=== PATIENT | female | born 1955 | race Caucasian/White ===

== ENCOUNTER 2024-12-16 19:15 | Emergency (ER) | payer MEDICARE, BC, SELFPAY ==
--- OUTSIDE RECORDS SUMMARY | 2024-12-16 19:18 | XMS_ITS | Clinical Summary ---
Author Organization [employer] [facility] [employer] Address [place], [place] [address] Care Team Providers Care Clipper Operator Name Role Phone Eunice Rae Primary Care Provider Allergies Active Allergy Reactions Criticality Noted Date Comments Amlodipine Other - Describe In Comment Field 03/25/2019 Extreme fatigue and tiredness. Some dizziness. Codeine GI Upset 06/11/2008 Medications CLARITIN 10 MG TAB take 1 tablet (10 mg) by oral route once daily/prn 0 06/11/20 08 Active cholecalciferol (VITAMIN D-3) 2,000 unit capsule Take 3 capsules by mouth once daily. 0 05/07/20 15 Active aspirin (ECOTRIN) 81 mg enteric coated tablet Take 1 tablet by mouth once daily with a meal. 0 05/24/20 15 Active hydrOXYzine HCL (ATARAX) 25 mg tabletIndicatio ns:Anxiety Take 1 tablet by mouth every 6 hours if needed for Anxiety. 25 tablet 1 09/06/20 20 Active FLUoxetine (PROZAC) 20 mg capsuleIndicati ons:Anxiety TAKE 1 CAPSULE BY MOUTH EVERY DAY IN THE MORNING 90 Capsule 3 12/24/19 24 Active propranoloL (INDERAL) 20 mg tabletIndicatio ns:Essential tremor Take 1 Tablet (20 mg) by mouth once daily. 90 Tablet 3 12/24/19 24 Active umeclidinium-vi lanteroL (Anoro Ellipta) 62.5-25 mcg/actuation inhalerIndicati ons:Chronic obstructive pulmonary disease, unspecified COPD type (HC) Inhale 1 Puff by mouth once daily. Discard inhaler 6 weeks after opening or when the counter reads '0' (after all blisters have been used), whichever comes first. 180 Each 3 03/28/20 24 Active albuterol HFA (PRO-AIR; VENTOLIN; PROVENTIL) 90 mcg/actuation inhalerIndicati ons:Chronic obstructive pulmonary disease, unspecified COPD type (HC) Inhale 1-2 Puffs by mouth every 4 hours if needed for Shortness Of Breath or Wheezing. 3 Each 3 03/28/20 24 Active rosuvastatin (CRESTOR) 5 mg tabletIndicatio ns:Hypercholest erolemia TAKE 1 TABLET BY MOUTH AT BEDTIME 90 Tablet 2 12/16/19 25 Active hydroCHLOROthia zide 25 mg tabletIndicatio ns:HTN (hypertension) TAKE 1 TABLET BY MOUTH EVERY DAY 90 Tablet 12/16/19 25 Active losartan (COZAAR) 100 mg tabletIndicatio ns:HTN (hypertension) TAKE 1 TABLET BY MOUTH EVERY DAY 90 Tablet 12/16/19 25 Active hydroCHLOROthia zide (HCTZ) 25 mg tabletIndicatio ns:HTN (hypertension) Take 1 Tablet (25 mg) by mouth once daily. 90 Tablet 3 12/24/19 24 025 Discontinued losartan (COZAAR) 100 mg tabletIndicatio ns:HTN (hypertension) Take 1 Tablet (100 mg) by mouth once daily. 90 Tablet 3 12/24/19 24 025 Discontinued rosuvastatin (CRESTOR) 5 mg tabletIndicatio ns:Hypercholest erolemia Take 1 Tablet (5 mg) by mouth at bedtime. 90 Tablet 3 12/24/19 24 025 Discontinued Active Problems Problem Noted Date Diagnosed Date Tobacco use disorder 05/12/2009 Encounters Date Type Department Care Team Description 12/14/2024 Refill [facility] [place] [address] [address] Eunice Rae PA Refill Request (Rosuvastatin, Hydrochlorothiazide, Losartan) 09/26/2024 3:20 PM CDT Office Visit [facility] [address] [place] [address] Eunice Rae PA URI (Productive cough, sinus congestion, fatigue. / Cough so hard she thinks she got a hernia) 09/26/2024 Travel 09/24/2024 Telephone [facility] [address] [place] [address] uEnice Rae PA Cough from Last 3 Months Immunizations Name Administration Dates Next Due AMB Influenza, IIV3 (Age >=3 years)(Flu Clinic Only) 08/11/2013,09/11/2011,09/15/2008 AMB Influenza, IIV4 PF (=>6 mos Flulaval,Fluzone Fluarix)(Flu Clinic Only) 08/15/2016 Amb Influenza, Inact (High-d ose Quadrivalent) (Flu Clinic Only) 08/13/2020 COVID-19 vaccine (Moderna 100mcg/0.5mL) PF, MDV 03/03/2021,02/03/2021 Influenza A (H1N1), Inactivated 12/07/2009 Influenza Virus, Unspecified 08/05/2017 Influenza, High-dose Inactivated 08/01/2024,07/27 Influenza, High-dose Quadriv alent Inactivated 09/01/2022,08/12/2021 Influenza, IIV3 (Age 6-35 mos) 09/11/2011,2009 Influenza, IIV3 (Age >=3 years) 08/11/20 13,08/12/2012,08/08/2010,08/31,09/15/2008,09/18/2007,09/18/2005 Influenza, IIV4 08/26/2018, 7,08/15/2016,08/19,08/10/2014 Influenza, Inactivated AIIV4 (Age 65+ Years) Preserv Free 09/10/2023 Influenza, Inactivated IIV3 (Age 65+ Years) Preserv Free 08/05/2019 Pneumococcal Conj 20-valent (Prevnar 20) 08/21/2024 Pneumococcal conj 13-Valent (Prevnar 13) 03/25/2019 RSV, Recombinant ADJ Reconst ituted (Arexvy 120MCG/0.5mL) 08/01/2024 Tdap 09/11/2011 Zoster (Zostavax-ZVL, live) 08/12/2012 Family History Medical History Relation Name Comments Other Brother dad's half brot her has Parkinson's Cancer-breast Daughter diagnosed Oct 2016, bilat mastectomy and chemo Esophageal cancer Mother Other Mother tremor Cancer-breast Sister Relation Name Status Comments Brother Daughter Mother Sister Social History Tobacco Use Types Packs/Day Years Used Date Smoking Tobacco: Every Day Cigarettes 1 43.7 Started: 04/08/1981 Smokeless Tobacco: Never Tobacco Cessation:Ready to Q uit: Not Asked; Counseling Given: Yes Alcohol Use Standard Drinks/Week Comments No 0 (1 standard drink = 0.6 oz pur e alcohol) PHQ-2 Answer Date Recorded PHQ-2 TOTAL SCORE 0 04/08/2021 Social Connections Answer Date Recorded Do you often feel lonely or isolated from those around you? 0 12/24/2023 Financial Resource Strain Answer Date R ecorded Difficulty of Paying Living Expenses 3 12/24/2023 Difficulty of Paying Living Expenses Not on file 12/24/2023 Food Insecurity Answer Date Recorded Do you worry your food will run out before you are able to buy more? 1 12/24/2023 Transportation Needs Answer Date Record ed Does lack of transportation keep you from medica l appointments? 1 12/24/2023 Does lack of transportation keep you from work, meetings or getting things that you need? 1 12/24/2023 Housing Stability Answer Date Recorded What is your housing situation today? 1 12/24/2023 Utilities Answer Date Recorded Do you have trouble paying f or utilities (for example, heat, electricity, water, phone)? 1 12/24/2023 Comments No Sex and Gender Information Value Date Recorded Sex Assigned at Not on file Legal Sex Female 5:25 AM MYCOLOGIST Gender Identity Not on file Sexual Orientation Not on file Obstetrics History Last Filed Vital Signs Vital Sign Reading Time Taken Comments Blood Pressure 137/84 09/26/2024 3:28 PM CDT Pulse 56 09/26/2024 3:28 PM CDT Temperature 36.4 C (97.5 F) 09/26/2024 3:28 PM CDT Respiratory Rate 18 04/08/2021 1:13 PM CDT Oxygen Saturation 96% 09/26/2024 3:28 PM CDT Inhaled Oxygen Concentration - - Weight 69.9 kg (154 lb) 09/26/2024 3:28 PM CDT Height 168 cm (5' 6.14) 09/01/2022 10:16 AM CDT Body Mass Index 24.75 09/01/2022 10:16 AM CDT Plan of Treatment Upcoming Encounters Date Type Department Care Team (Late st Contact Info) Description 01/05/2025 10:30 AM MYCOLOGIST Office Visit [facility] [address] [place] [address] Eunice Rae PA [address] [place] [address] Health Maintenance Due Date Last Done Comments Hepatitis C screening for ag e 18-79 1971 Mammogram for age 45-[address] (for lung CA) ag e 50-80 2003 Zoster (shingles) series for age 50+ (2 of 3) 10/07/2012 08/12/2012 DEXA/DXA scan for age 65+ 2018 Medicare Wellness for age 65+ 2018 Tetanus booster 09/11/2021 09/11/2011, 09/11/2011 Depression screening for age 12+ 04/08/2022 04/08/2021, 10/08/2018, 10/08/2018, Additional history exists BMI (ht and wt on same day) for age 18+ 09/01/2023 09/01/2022, 04/11/2022, 09/26/2021, Additional history exists Fecal testing non-DNA (FIT,FOBT,iFOBT) for age 45-75 01/03/2024 01/03/2023, 07/24/2015 Lipids for age 45-75 01/27/2028 01/26/2023, 04/11/2022, 04/08/2021 Tdap Completed 09/11/2011 Influenza for age 65+ Completed 08/01/2024 , 09/10/2023, 09/01/2022, Additional history exists RSV vaccine for adults or Completed 08/01/2024 COVID-19 vaccine series Completed 08/21/20 24, 09/01/2022, 09/29/2021, Additional history exists Pneumococcal series for age 50+ Completed 4, 03/25/2019 Procedures Procedure Name Priority Date/Time Associated Diagnosis Comments LC LIPID PANEL AND CHOL/HDL RATIO Routine 01/26/2023 9:30 AM MYCOLOGIST Fatigue, unspecified type Pica in adults Acute diarrhea OCCULT BLOOD IFOBT STOOL Routine 01/03/2023 10:26 AM MYCOLOGIST Screening for colon cancer from Last 3 Months or Most Recently Relevant to Health Maintenance Results * (ABNORMAL) LC LIPID PANEL AND CHOL/HDL RATIO (01/26/2023 9:30 AM MYCOLOGIST) Cholesterol, Total 278(H) 100 - 199 mg/dL 01/30/2023 11:09 AM [facility] Triglycerides 174(H) 0 - 149 mg/dL 01/30/2023 11:09 AM [facility] HDL Cholesterol 47 >39 mg/dL 3 11:09 AM [facility] ([facility] VLDL Cholesterol Abdirashid 33 5 - 40 mg/dL 01/30/2023 11:09 AM [facility] LDL Chol Calc (NIH) 198(H) 0 - 99 mg/dL 01/30/2023 11:09 AM [facility] ([facility] Lipid Comment: Comment 01/30/2023 11:09 AM [facility] ([facility]) Comment: Possible Familial Hypercholesterolemia. FH should be suspected when fasting LDL cholesterol is above 189 mg/dL or non-HDL cholesterol is above 219 mg/dL. A family history of high cholesterol and heart disease in 1st degree relatives should be collected. J Clin Lipidol 2011;5:133-140 T. Chol/HDL Ratio 5.9(H) 0.0 - 4.4 ratio 01/30/2023 11:09 AM [facility] ([facility]) Comment: T. Chol/HDL Ratio Men Women 1/2 Avg.Risk 3.4 3.3 Avg.Risk 5.0 4.4 2X Avg.Risk 9.6 7.1 3X Avg.Risk 23.4 11.0 Blood BLOOD SPECIMEN / Unknown Venipuncture / Unknown 01/26/2023 9:30 AM MYCOLOGIST 01/26/2023 9:31 AM MYCOLOGIST Narrative [facility] ([facility]) - 01/30/2023 11:09 AM MYCOLOGIST Performed at: [address] [id number] [employer] Operator: Dylan Lopez MD, Phone: [phone] Eunice SANDHU SEND OUTS Final R esult [facility] ([facility]) [address] [place] [address], * OCCULT BLOOD IFOBT STOOL (01/03/2023 10:26 AM MYCOLOGIST) [facility] Signature STOOL BLOOD ,IFOBT Negative Negative 01/08/2023 10:58 AM MYCOLOGIST [facility] Stool STOOL SPECIMEN / Unknown Non-Blood / Unknown 01/03/2023 10:26 AM MYCOLOGIST 01/08/2023 10:26 AM MYCOLOGIST Eunice SANDHU [employer] Final R esult [facility] [address] [place] [address], from Last 3 Months or Most Recently Relevant to Health Maintenance Insurance [employer] [place] ONLY Care Teams Clipper Operator Relationship Specialty Start Date End Date Eunice Rae PA [address] [place], [place] [id number] PCP - General Family Practice 01/25/15
[2024-12-16 19:37] VITALS: BP 120/76; PULSE 63; RESP 16; TEMP 36.3; O2SAT 95; BMI 25.8
--- NOTE | 2024-12-16 20:19 | ED.FALL ---
HPI - Fall General Time Seen by Provider: 20:19 Date Seen: 12/16/24 Chief Complaint: Fall/Minor Trauma Stated Complaint: fell, hit head, L hand injury Time Seen by Provider: 12/16/24 20:19 Source: patient and RN notes reviewed Mode of arrival: ambulatory Limitations: no limitations History of Present Illness HPI Narrative: Patient is a very pleasant 69-year-old female with history of hypertension and tobacco use with early COPD who comes to the emergency room after falling and injuring her left hand and her left tenriism. Patient was walking into the ice arena and there is a slight decline. She was holding a blanket and she fell down. Her was with her. No reports of loss of consciousness, changes in mentation, vomiting. She had a glove on and when she removed the glove she had a large hematoma on the back of her hand and it was causing her discomfort especially with movement. She notes that she now has a headache on the left side of her head. No visual changes. Denies any neck pain and is able to move her neck without difficulty. Denies any prodromal symptoms prior to the fall. Thinks that maybe she had some gravel when she was walking. Related Data Allergies Allergy/AdvReac Type Severity Reaction Status Date / Time No Known Drug Allergies Allergy Verified 12/16/24 19:41 Review of Systems Status of ROS: Reports: 6 or more systems reviewed and unremarkable except as noted in History and below Const: Denies: fever Eyes: Denies: change in vision ENMT: Denies: neck pain Cardio: Denies: chest pain GI: Denies: vomiting Musculo: Denies: neck pain Neuro: Reports: headache Exam Narrative: Exam Narrative: Alert and oriented. Very pleasant woman in no acute distress. EOM is full. Pupils are small at 2.5 mm but are reactive. Head shows ecchymosis noted over the left tenriism extending onto the lateral aspect of the periorbital bones. No step-offs palpated. Neck is supple. No midline cervical tenderness. No guarding. Patient is able to rotate extend and flex neck without any discomfort. Heart with regular rate and rhythm and lungs are clear. Examination of her hand on the left shows a large palm-sized hematoma over the dorsal aspect distal 4th and 5th MCP. She is able to make a fist but this causes her discomfort. Otherwise moving all extremities. Const: Vital Signs, click to edit/add: Vital Signs - 24 hr 12/16/24 19:37 Temperature 97.4 F L Pulse Rate [Left P ulse Oximeter] 63 Respiratory Rate 16 Blood Pressure [Ri ght Upper Arm] 120/76 Pulse Oximetry 95 Oxygen Delivery Me thod Room Air Documenting provider has reviewed patient's vital signs: yes Course Course ED Course: Differential diagnosis includes but is not limited to soft tissue injury, fracture of the hand, intracranial bleed, skull fracture. Patient will undergo CT of the head. Have added facial CT given the location of the bruising which is extending on to the cheek bone. Also x-rays of the left hand or ordered. Patient is stable at this time with no worrisome vital signs. No evidence of loss of consciousness. Will not scan her neck is she has full range of motion at this time and no discomfort. Vital Signs Vital signs: Initial Vital Signs Temperature 97.4 F L 12/16/24 19:37 Temperature Source Temporal Artery Scan 12/16/24 19:37 Pulse Rate 63 12/16/24 19:37 Pulse Rhythm Regular 12/16/24 19:37 Respiratory Rate 16 12/16/24 19:37 Blood Pressure 120/76 12/16/24 19:37 Blood Pressure Mean 90 12/16/24 19:37 Blood Pressure Position Sitting 12/16/24 19:37 Pulse Oximetry 95 12/16/24 19:37 Oxygen Delivery Method Room Air 12/16/24 19:37 Vital Signs Temperature 97.4 F L 12/16/24 19:37 Pulse Rate 63 12/16/24 19:37 Respiratory Rate 16 12/16/24 19:37 Blood Pressure 120/76 12/16/24 19:37 Pulse Oximetry 95 12/16/24 19:37 Oxygen Delivery Method Room Air 12/16/24 19:37 Temperature 97.4 F L 12/16/24 19:37 Pulse Rate 63 12/16/24 19:37 Respiratory Rate 16 12/16/24 19:37 Blood Pressure 120/76 12/16/24 19:37 Pulse Oximetry 95 12/16/24 19:37 Oxygen Delivery Method Room Air 12/16/24 19:37 MDM - Fall MDM Narrative Medical decision making narrative: 1. Soft tissue injury left hand-ice to area of discomfort 2. Closed head injury-no evidence of loss of consciousness but patient complaining of headache. CT reassuring at this time. Recommend ibuprofen or Tylenol as needed for discomfort. Seek medical attention for vomiting nausea worsening symptoms and as needed. 3. Disposition-home at this time with her . Return as needed. Imaging Data CT scan - head: Attestation: I have reviewed the pertinent imaging results. My impression: I do not note any evidence of skull fracture or intracranial bleed. Radiologist's impression: Brain parenchyma, CSF spaces, and extra-axial spaces: The davenport-white differentiation is normal. No sign of mass, hemorrhage, or midline shift. No hydrocephalus. No extra-axial fluid collection. Atherosclerotic calcification of the bilateral carotid siphons. Bones: No fractures or bone lesions. Specifically the nasal bones, temporomandibular joints, maxilla and mandible appear intact. No skull fracture. Mild degenerative changes of the left TMJ. Orbits and globes: Bilateral lens replacement. Mild asymmetric left lateral periorbital soft tissue swelling. Globes are intact. No sign of intraorbital hemorrhage or emphysema. Sinuses and mastoid air cells: No acute or significant findings. Soft tissues: Unremarkable. IMPRESSION: 1. No evidence of an acute intracranial abnormality. 2. Mild asymmetric left lateral periorbital soft tissue swelling. No orbital or other maxillofacial fracture identified. Facial CT: Attestation: I have reviewed the pertinent imaging results. My impression: No obvious fractures. Radiologist's impression: Brain parenchyma, CSF spaces, and extra-axial spaces: The davenport-white differentiation is normal. No sign of mass, hemorrhage, or midline shift. No hydrocephalus. No extra-axial fluid collection. Atherosclerotic calcification of the bilateral carotid siphons. Bones: No fractures or bone lesions. Specifically the nasal bones, temporomandibular joints, maxilla and mandible appear intact. No skull fracture. Mild degenerative changes of the left TMJ. Orbits and globes: Bilateral lens replacement. Mild asymmetric left lateral periorbital soft tissue swelling. Globes are intact. No sign of intraorbital hemorrhage or emphysema. Sinuses and mastoid air cells: No acute or significant findings. Soft tissues: Unremarkable. IMPRESSION: 1. No evidence of an acute intracranial abnormality. 2. Mild asymmetric left lateral periorbital soft tissue swelling. No orbital or other maxillofacial fracture identified. Left hand x-ray: Attestation: I have reviewed the pertinent imaging results. My impression: No obvious fracture Radiologist's impression: Bones: Alignment is normal. No fractures or bone lesions. Joint spaces: Mild degenerative changes the radiocarpal and 1st carpometacarpal joints. Soft tissues: Mild dorsal hand soft tissue swelling. Impression: Mild dorsal hand soft tissue swelling. No acute bony abnormality. Discharge Plan Discharge Clinical Impression: Soft tissue injury of left hand, Closed head injury Patient Disposition: Home, Self-Care Condition: Unchanged Additional Instructions: Recommend Tylenol or ibuprofen as needed for discomfort. Rest this week. Seek medical attention for vomiting, visual changes, worsening symptoms. Ice to areas of discomfort as needed. Follow Up/Referrals: Eunice Rae PA-C [Primary Care Provider] - Stand Alone Forms: [employer] Info Instructions
--- NOTE | 2024-12-16 20:28 | CRLHL7_ITS ---
For Patients: As a result of the Cures Act, medical imaging exams and procedure reports are released immediately into your electronic medical record. You may view this report before your referring provider. If you have questions, please contact your health care provider. Indication: Left dorsal hematoma. Technique: Left hand 2 views. Comparison: None. Findings: Bones: Alignment is normal. No fractures or bone lesions. Joint spaces: Mild degenerative changes the radiocarpal and 1st carpometacarpal joints. Soft tissues: Mild dorsal hand soft tissue swelling. Impression: Mild dorsal hand soft tissue swelling. No acute bony abnormality. Dictated by Ten Ewing MD @ 12/16/2024 9:22:40 PM (Electronically Signed)
--- NOTE | 2024-12-16 20:28 | CRLHL7_ITS ---
For Patients: As a result of the Century Cures Act, medical imaging exams and procedure reports are released immediately into your electronic medical record. You may view this report before your referring provider. If you have questions, please contact your health care provider. INDICATION: Left periorbital trauma. TECHNIQUE: CT head and maxillofacial without contrast. COMPARISON: None. FINDINGS: Brain parenchyma, CSF spaces, and extra-axial spaces: The davenport-white differentiation is normal. No sign of mass, hemorrhage, or midline shift. No hydrocephalus. No extra-axial fluid collection. Atherosclerotic calcification of the bilateral carotid siphons. Bones: No fractures or bone lesions. Specifically the nasal bones, temporomandibular joints, maxilla and mandible appear intact. No skull fracture. Mild degenerative changes of the left TMJ. Orbits and globes: Bilateral lens replacement. Mild asymmetric left lateral periorbital soft tissue swelling. Globes are intact. No sign of intraorbital hemorrhage or emphysema. Sinuses and mastoid air cells: No acute or significant findings. Soft tissues: Unremarkable. IMPRESSION: 1. No evidence of an acute intracranial abnormality. 2. Mild asymmetric left lateral periorbital soft tissue swelling. No orbital or other maxillofacial fracture identified. Please note that all CT scans at this facility use dose modulation, iterative reconstruction, and/or weight-based dosing when appropriate to reduce radiation dose to as low as reasonably achievable. Dictated by Ten Ewing MD @ 12/16/2024 9:19:38 PM (Electronically Signed)
--- OUTSIDE RECORDS SUMMARY | 2024-12-16 20:54 | XMS_ITS | Clinical Summary ---
Author Organization [email or web address] [facility] Address [place], [place] [address] Care Team Providers Care Rn Cardiovascular Icu Name Role Phone Eunice Rae Primary Care [...] Type Department Care Team Description 12/14/2024 Refill [facility] [place] [address] [address] Eunice Rae PA Refill Request (Rosuvastatin, Hydrochlorothiazide, Losartan) 09/26/2024 3:20 PM CDT Office Visit [facility] [address] [place] [address] Eunice Rae PA URI (Productive cough, sinus congestion, fatigue. / Cough so hard she thinks she got a hernia) 09/26/2024 Travel 09/24/2024 Telephone [facility] [address] [place] [address] Eunice Rae PA Cough from Last 3 Months [...] on file Legal Sex Female 5:25 AM SEWER AND INSPECTOR Gender Identity Not on file Sexual Orientation [...] st Contact Info) Description 01/05/2025 10:30 AM SEWER AND INSPECTOR Office Visit [facility] [address] [place] [address] Eunice Rae PA [address] [place] [address] Health Maintenance Due Date Last Done Comments [...] AND CHOL/HDL RATIO Routine 01/26/2023 9:30 AM SEWER AND INSPECTOR Fatigue, unspecified type Pica in adults Acute diarrhea OCCULT BLOOD IFOBT STOOL Routine 01/03/2023 10:26 AM SEWER AND INSPECTOR Screening for colon cancer from Last 3 Months or Most Recently Relevant to Health Maintenance Results * (ABNORMAL) LC LIPID PANEL AND CHOL/HDL RATIO (01/26/2023 9:30 AM SEWER AND INSPECTOR) Cholesterol, Total 278(H) 100 - 199 mg/dL 01/30/2023 11:09 AM [facility] Triglycerides 174(H) 0 - 149 mg/dL 01/30/2023 11:09 AM [facility] HDL Cholesterol 47 >39 mg/dL 3 11:09 AM [facility] VLDL Cholesterol Abdirashid 33 5 - 40 mg/dL 01/30/2023 11:09 AM [facility] LDL Chol Calc (NIH) 198(H) 0 - 99 mg/dL 01/30/2023 11:09 AM [facility] Lipid Comment: Comment 01/30/2023 11:09 AM [facility] Comment: Possible Familial Hypercholesterolemia. FH should be suspected when fasting LDL cholesterol is above 189 mg/dL or non-HDL cholesterol is above 219 mg/dL. A family history of high cholesterol and heart disease in 1st degree relatives should be collected. J Clin Lipidol 2011;5:133-140 T. Chol/HDL Ratio 5.9(H) 0.0 - 4.4 ratio 01/30/2023 11:09 AM [facility] Comment: T. Chol/HDL Ratio Men Women 1/2 Avg.Risk 3.4 3.3 Avg.Risk 5.0 4.4 2X Avg.Risk 9.6 7.1 3X Avg.Risk 23.4 11.0 Blood BLOOD SPECIMEN / Unknown Venipuncture / Unknown 01/26/2023 9:30 AM SEWER AND INSPECTOR 01/26/2023 9:31 AM SEWER AND INSPECTOR Narrative [facility] - 01/30/2023 11:09 AM SEWER AND INSPECTOR Performed at: [address] [id number] Client Professional: Dylan Lopez MD, Phone: [phone] Eunice SANDHU SEND OUTS Final R esult [facility] ([facility]) [address] [place] [address], * OCCULT BLOOD IFOBT STOOL (01/03/2023 10:26 AM SEWER AND INSPECTOR) [facility] Signature STOOL BLOOD ,IFOBT Negative Negative 01/08/2023 10:58 AM SEWER AND INSPECTOR [facility] Stool STOOL SPECIMEN / Unknown Non-Blood / Unknown 01/03/2023 10:26 AM SEWER AND INSPECTOR 01/08/2023 10:26 AM SEWER AND INSPECTOR Eunice SANDHU LABORATORY Final R esult [facility] [address] [place] [address], from Last 3 Months or Most Recently Relevant to Health Maintenance Insurance [employer] [place] [employer] ONLY Care Teams Rn Cardiovascular Icu Relationship Specialty Start Date End Date Eunice Rae PA [address] [place], [place] [id number] PCP - General Family Practice 01/25/15
== END 2024-12-16 21:47 | disposition home or self-care (01) ==
PROVIDERS: Emergency Provider Family Medicine; PCP Physician Assistant Medical
DX: S09.90XA Unspecified injury of head, initial encounter (principal); S60.222A Contusion of left hand, initial encounter; W18.30XA Fall on same level, unspecified, initial encounter
CPT/HCPCS: 70450; 70486; 73120; 99284

== ENCOUNTER 2025-05-25 16:41 | Emergency (ER) | payer MEDICARE, BC, SELFPAY ==
[2025-05-25 16:54] VITALS: BP 145/83; PULSE 67; RESP 18; TEMP 36.3; O2SAT 97; BMI 22.6
--- OUTSIDE RECORDS SUMMARY | 2025-05-25 16:55 | XMS_ITS | Clinical Summary ---
Author Organization [facility] Address [address] [place] [address] Care Team Providers Care Manager Trust Name Role Phone Eunice Rae Primary Care Provider Allergies Active Allergy Reactions Criticality Noted Date Comments Amlodipine Other - Describe In Comment Field 03/25/2019 Extreme fatigue and tiredness. Some dizziness. Codeine GI Upset 06/11/2008 Medications CLARITIN 10 MG TAB take 1 tablet (10 mg) by oral route once daily/prn 0 8 Active cholecalciferol (VITAMIN D-3) 2,000 unit capsule Take 3 capsules by mouth once daily. 0 5 Active aspirin (ECOTRIN) 81 mg enteric coated tablet Take 1 tablet by mouth once daily with a meal. 0 5 Active hydrOXYzine HCL (ATARAX) 25 mg tabletIndicatio ns:Anxiety Take 1 tablet by mouth every 6 hours if needed for Anxiety. 25 tablet 1 0 Active rosuvastatin (CRESTOR) 5 mg tabletIndicatio ns:Hypercholest erolemia TAKE 1 TABLET BY MOUTH AT BEDTIME 90 Tablet 2 5 Active hydroCHLOROthia zide 25 mg tabletIndicatio ns:HTN (hypertension) Take 1 Tablet (25 mg) by mouth once daily. 90 Tablet 3 5 Active FLUoxetine 20 mg capsuleIndicati ons:Anxiety TAKE 1 CAPSULE BY MOUTH EVERY DAY IN THE MORNING 90 Capsule 2 5 Active albuterol HFA 90 mcg/actuation inhalerIndicati ons:Chronic obstructive pulmonary disease, unspecified COPD type (HC) INHALE 1 TO 2 PUFFS BY MOUTH EVERY 4 HOURS NEEDED FOR SHORTNESS OF BREATH OR FOR WHEEZE 25.5 Each 3 5 Active losartan 50 mg tabletIndicatio ns:HTN (hypertension) Take 1.5 Tablets (75 mg) by mouth once daily. 135 Tablet 5 Active umeclidinium-vi lanteroL (Anoro Ellipta) 62.5-25 mcg/actuation inhalerIndicati ons:Chronic obstructive pulmonary disease, unspecified COPD type (HC) Inhale 1 Puff by mouth once daily. Discard inhaler 6 weeks after opening or when the counter reads '0' (after all blisters have been used), whichever comes first. 180 Each 5 Active propranoloL 10 mg tabletIndicatio ns:Benign essential tremor,HTN (hypertension) Take 1 Tablet (10 mg) by mouth once daily. 90 Tablet 1 5 Active propranoloL 20 mg tabletIndicatio ns:Essential tremor Take 1 Tablet (20 mg) by mouth once daily. 90 Tablet 2 5 05/18/20 25 Discontinu ed(*Medica tion adjustment ) Active Problems Problem Noted Date Diagnosed Date Tobacco use disorder 05/12/2009 Encounters Date Type Department Care Team Description 05/25/2025 Nurse Triage [facility] [address] [place] [address] Eunice Rae PA 05/25/2025 Telephone [facility] [address] [place] [address] Eunice Rae PA Concerns 05/20/2025 9:00 AM CDT Ancillary Procedure [facility] [address] [facility] [address] [place] [address] 05/19/2025 Travel 05/18/2025 10:30 AM CDT Office Visit [facility] [address] [place] [address] Eunice Rae PA Abdominal Pain (Upper central pain and on each side, very random. Feels bloated all the time, so doesn't eat much); Constipation; Nausea; Blood Pressure (BP keeps dropping in the afternoon, gets really dizzy); Breathing Problem (When active, has been for awhile now, inhaler does help) 05/17/2025 Travel 04/03/2025 Refill [facility] [address] [place] [address] Eunice Rae PA Refill Request (Umeclidinium-Vilan tero 62.5-25) 04/01/2025 Refill [facility] [address] [place] [address] Eunice Rae PA Refill Request (Anoro Ellipta) 03/31/2025 10:30 AM CDT Orders Only [facility] [address] [place] [address] Lab, [facility] 03/30/2025 2:40 PM CDT Office Visit [facility] [address] [place] [address] Eunice Rae PA Back Pain (Lower back pain - pain when she gets up from a sitting position.); Urinary Problem (Very dark color in the mornings, abnormal odor) 03/30/2025 Travel from Last 3 Months Immunizations Immunization Administration Dates Next Due AMB Influenza, IIV3 [...] Date Smoking Tobacco: Every Day Cigarettes 1 44.1 Started: 04/08/1981 Smokeless Tobacco: Never Tobacco Cessation:Ready to Q uit: Not Asked; Counseling Given: Yes Alcohol Use Standard Drinks/Week Comments No 0 (1 standard drink = 0.6 oz pur e alcohol) PHQ-2 Answer Date Recorded PHQ-2 TOTAL SCORE 1 01/05/2025 Social Connections Answer Date Recorded Do you often feel lonely or isolated from those around you? 0 01/05/2025 Financial Resource Strain Answer Date R ecorded Difficulty of Paying Living Expenses 3 01/05/2025 Difficulty of Paying Living Expenses Not on file 01/05/2025 Food Insecurity Answer Date Recorded Do you worry your food will run out before you are able to buy more? 1 01/05/2025 Transportation Needs Answer Date Record ed Does lack of transportation keep you from medica l appointments? 1 01/05/2025 Does lack of transportation keep you from work, meetings or getting things that you need? 1 01/05/2025 Housing Stability Answer Date Recorded What is your housing situation today? 1 01/05/2025 Utilities Answer Date Recorded Do you have trouble paying f or utilities (for example, heat, electricity, water, phone)? 1 01/05/2025 Comments No Sex and Gender Information Value Date Recorded Sex Assigned at Not on file Legal Sex Female 5:25 AM MANAGER CLEANING Gender Identity Not on file Sexual Orientation Not on file Obstetrics History Last Filed Vital Signs Vital Sign Reading Time Taken Comments Blood Pressure 131/74 05/18/2025 10:41 AM CDT Pulse 52 05/18/2025 10:41 AM CDT Temperature 36.4 C (97.5 F) 09/26/2024 3:28 PM CDT Respiratory Rate 18 04/08/2021 1:13 PM CDT Oxygen Saturation 98% 05/18/2025 10:41 AM CDT Inhaled Oxygen Concentration - - Weight 63.5 kg (140 lb) 05/18/2025 10:41 AM CDT Height 168 cm (5' 6.14) 01/05/2025 10:43 AM MANAGER CLEANING Body Mass Index 22.5 01/05/2025 10:43 AM MANAGER CLEANING Plan of Treatment Upcoming Encounters Date Type Department Care Team (Late st Contact Info) Description 05/26/2025 10:10 AM CDT Office Visit [facility] [address] [place] [address] Eunice Rae PA [address] [place] [address] Health Maintenance Due Date Last Done Comments Hepatitis C screening for age 18-79 1971 Mammogram for age 45-[address] (for lung CA) age 50-80 2003 Zoster (shingles) series for age 50+ (2 of 3) 10/07/2012 08/12/2012 DEXA/DXA scan for age 65+ 2018 Tetanus booster 09/11/2021 09/11/2011, 09/11/2011 Fecal testing non-DNA (FIT,FOBT,iFOBT) for age 45-75 01/03/2024 01/03/2023, 07/24/2015 COVID-19 vaccine series ( season) 2025 08/21/2024, 09/01/2022, 09/29/2021, Additional history exists BMI (ht and wt on same day) for age 18+ 01/05/2026 01/05/2025, 09/01/2022, 04/11/2022, Additional history exists Depression screening for age 12+ 01/05/2026 01/05/2025, 04/08/2021, 10/08/2018, Additional history exists Medicare Wellness for age 65+ 01/06/2026 01/05/2025 Lipids for age 45-75 01/05/2030 01/05/2025, 01/26/2023, 04/11/2022, Additional history exists Tdap Completed 09/11/2011 Influenza Vaccine Completed 08/01/2024, , 08/13/2020, Additional history exists RSV vaccine for adults or Completed 08/01/2024 Pneumococcal series for age 50+ Completed 08/21/2024, 03/25/2019 Hepatitis B series for 19+ Aged Out N o longer eligible based on patient's age to complete this topic Procedures Procedure Name Priority Date/Time Associated Diagnosis Comments US ABDOMEN LIMITED Routine 05/20/2025 9: 39 AM CDT Abdominal pain, RUQ (right upper quadrant) COMP METABOLIC PANEL Routine 05/18/2025 11:20 AM CDT Abdominal pain, RUQ (right upper quadrant) CBC WITH AUTO DIFFERENTIAL Routine 05/18/2025 11:20 AM CDT Abdominal pain, RUQ (right upper quadrant) URINALYSIS MACROSCOPIC - [facility] ONLY POC DIP ([facility]) Routine 03/31/2025 11:38 AM CDT Dark brown urine URINE CULTURE Routine 03/31/2025 11:05 AM CDT Dark brown urine URINALYSIS MICROSCOPIC Routine 03/31/2025 11:05 AM CDT Dark brown urine LIPID PANEL W REFLEX MEASURED LDL Routine 01/05/2025 11:43 AM MANAGER CLEANING Screening cholesterol level OCCULT BLOOD IFOBT STOOL Routine 01/03/2023 10:26 AM MANAGER CLEANING Screening for colon cancer from Last 3 Months or Most Recently Relevant to Health Maintenance Results * US ABDOMEN LIMITED (05/20/2025 9:39 AM CDT) Anatomical Region Laterality Modality Abdomen, LIVER, KIDNEYS, PANCREAS, GALLBLADDER, SPLEEN Ultrasound 05/21/2025 7:47 AM CDT Impressions 05/21/2025 7:47 AM CDT Multiple gallbladder polyps measuring up to 4 millimeters. No biliary obstruction. Incidental intrahepatic cysts. Central abdominal varicosities which could suggest portal hypertension or other pathology. CT recommended for further evaluation. Dictated by Cristóbal Larry MD @ 05/21/2025 7:47:49 AM (Electronically Signed) Narrative 05/21/2025 7:47 AM CDT For Patients: As a result of the Century Cures Act, medical imaging exams and procedure reports are released immediately into your electronic medical record. You may view this report before your referring provider. If you have questions, please contact your health care provider. INDICATION: Abdominal pain, RUQ (right upper quadrant) COMPARISON: none TECHNIQUE: Real time davenport scale imaging and color Doppler analysis was performed of the right upper quadrant. FINDINGS: Right hepatic lobe simple cysts are present measuring 2.5 x 1.8 x 2.8 cm and 2.4 x 1.2 x 1.8 cm. No suspicious intrahepatic mass. Varicosities noted. There is a normal appearance of the hepatic IVC and proximal abdominal aorta. There is no evidence of ascites. The gallbladder is of normal size and there are nonmobile echogenic foci associated with the gallbladder wall measuring up to 4 millimeters. The gallbladder wall measures 1 mm in thickness. The common bile duct is of normal size and measures 5 mm in diameter at the level of the osman hepatis. The pancreas appears normal. There is no evidence of a stone or hydronephrosis within the right kidney. The right kidney measures 10.0 cm in length. Procedure Note Cristóbal Larry MD - 05/21/2025 For Patients: As a result of the Century Cures Act, medical imagingexams and procedure reports are released immediately into your electronicmedical record. You may view this report before your referring provider.If you have questions, please contact your health care provider. INDICATION: Abdominal pain, RUQ (right upper quadrant) COMPARISON: none TECHNIQUE: Real time davenport scale imaging and color Doppler analysis was performed ofthe right upper quadrant. FINDINGS: Right hepatic lobe simple cysts are present measuring 2.5 x 1.8 x 2.8 cmand 2.4 x 1.2 x 1.8 cm. No suspicious intrahepatic mass. Varicositiesnoted. There is a normal appearance of the hepatic IVC and proximalabdominal aorta. There is no evidence of ascites. The gallbladder is ofnormal size and there are nonmobile echogenic foci associated with thegallbladder wall measuring up to 4 millimeters. The gallbladder wallmeasures 1 mm in thickness. The common bile duct is of normal size andmeasures 5 mm in diameter at the level of the osman hepatis. The pancreasappears normal. There is no evidence of a stone or hydronephrosis withinthe right kidney. The right kidney measures 10.0 cm in length. IMPRESSION: Multiple gallbladder polyps measuring up to 4 millimeters. No biliaryobstruction. Incidental intrahepatic cysts. Central abdominal varicosities which could suggest portal hypertension orother pathology. CT recommended for further evaluation. Dictated by Cristóbal Larry MD @ 05/21/2025 7:47:49 AM (Electronically Signed) us Eunice SANDHU Final R esult * (ABNORMAL) CBC AND DIFFERENTIAL (05/18/2025 11:20 AM CDT) WHITE BLOOD CELL COUNT 9.8 3.8 - 10.8 Thousand/u L [facility] RED BLOOD CELL COUNT 4.90 3.80 - 5.10 Million/uL [facility] HEMOGLOBIN 14.7 11.7 - 15.5 g/dL [facility] HEMATOCRIT 44.1 35.0 - 45.0 % [facility] MCV 90.0 80.0 - 100.0 fL [facility] MCH 30.0 27.0 - 33.0 pg [facility] MCHC 33.3 32.0 - 36.0 g/dL [facility] Comment: For adults, a slight decrease in the calculated MCHC value (in the range of 30 to 32 g/dL) is most likely not clinically significant; however, it should be interpreted with caution in correlation with other red cell parameters and the patient's clinical condition. RDW 13.0 11.0 - 15.0 % [facility] PLATELET COUNT 284 140 - 400 Thousand/u L [facility] MPV 10.8 7.5 - 12.5 fL [facility] ABSOLUTE NEUTROPHILS 6,889 1,500 - 7,800 cells/uL [facility] ABSOLUTE LYMPHOCYTES 1,490 850 - 3,900 cells/uL [facility] ABSOLUTE MONOCYTES 1,107(H) 200 - 950 cells/uL [facility] ABSOLUTE EOSINOPHILS 196 15 - 500 cells/uL [facility] ABSOLUTE BASOPHILS 118 0 - 200 cells/uL [facility] NEUTROPHILS 70.3 % [facility] LYMPHOCYTES 15.2 % [facility] MONOCYTES 11.3 % [facility] EOSINOPHILS 2.0 % [facility] BASOPHILS 1.2 % [facility] Blood BLOOD SPECIMEN / Unknown 05/18/2025 11:20 AM CDT 05/18/2025 11:21 AM CDT us Eunice SANDHU HEMATOLOGY Final R esult [facility] [address] [place] [address], [facility] [address] [place] [address] * COMP METABOLIC PANEL (05/18/2025 11:20 AM CDT) Pathologist [facility] GLUCOSE 97 65 - 99 mg/dL [facility] Comment: Fasting reference interval UREA NITROGEN (BUN) 21 7 - 25 mg/dL [facility] CREATININE 0.87 0.60 - 1.00 mg/dL [facility] EGFR 71 > OR = 60 mL/min/1. 73m2 [facility] BUN/CREATININE RATIO SEE NOTE: 6 - 22 (calc) [facility] Comment: Not Reported: BUN and Creatinine are within reference range. SODIUM 135 135 - 146 mmol/L [facility] POTASSIUM 3.6 3.5 - 5.3 mmol/L [facility] CHLORIDE 99 98 - 110 mmol/L [facility] CARBON DIOXIDE 26 20 - 32 mmol/L [facility] CALCIUM 9.4 8.6 - 10.4 mg/dL [facility] PROTEIN, TOTAL 6.8 6.1 - 8.1 g/dL [facility] ALBUMIN 4.1 3.6 - 5.1 g/dL [facility] GLOBULIN 2.7 1.9 - 3.7 g/dL (calc) [facility] ALBUMIN/GLOBULIN RATIO 1.5 1.0 - 2.5 (calc) [facility] BILIRUBIN, TOTAL 0.6 0.2 - 1.2 mg/dL [facility] ALKALINE PHOSPHATASE 63 37 - 153 U/L [facility] AST 19 10 - 35 U/L [facility] ALT 17 6 - 29 U/L [facility] Blood BLOOD SPECIMEN / Unknown 05/18/2025 11:20 AM CDT 05/18/2025 11:21 AM CDT us Eunice SANDHU CHEMISTRY Final R esult [facility] [id number] [place] [address], [place] [phone] [facility] [address] [place] [address] * (ABNORMAL) POCT Urinalysis Dipstick Only [[id number]] (03/31/2025 11:38 AM CDT) Pathologist [facility] PH 5.5 5.0 - 8.0 [facility] SPECIFIC GRAVITY 1.020 1.001 - 1.035 [facility] GLUCOSE NEGATIVE NEGATIVE [facility] BILIRUBIN NEGATIVE NEGATIVE [facility] KETONES NEGATIVE NEGATIVE [facility] OCCULT BLOOD NEGATIVE NEGATIVE [facility] PROTEIN NEGATIVE NEGATIVE [facility] NITRITE NEGATIVE NEGATIVE [facility] LEUKOCYTE ESTERASE TRACE(A) NEGATIVE [facility] Urine URINE SPECIMEN / Unknown 03/31/2025 11:38 AM CDT 03/31/2025 11:38 AM CDT Eunice SANDHU URINE Final R esult [facility] [address] [place] [address], [facility] [address] [place] [address] * (ABNORMAL) URINALYSIS MICROSCOPIC [25663.1] - routine (03/31/2025 11:05 AM CDT) RBC 0-2 0-2, None Seen /HPF 03/31/2025 3:26 PM CDT [facility] WBC 3-5 0-2, 3-5, None Seen /HPF 03/31/2025 3:26 PM CDT [facility] BACTERIA Many(A) None Seen, Rare, Few Bacteria/ HPF 03/31/2025 3:26 PM CDT [facility] EPITHELIAL CELLS None Seen None Seen, Few Epi/HPF 03/31/2025 3:26 PM CDT [facility] HYALINE CASTS 0-2 0-2, 3-5 /LPF 03/31/2025 3:26 PM CDT [facility] Urine URINE SPECIMEN / Unknown Non-Blood / Unknown 03/31/2025 11:05 AM CDT 03/31/2025 11:05 AM CDT us Eunice SANDHU URINE Final R esult [facility] [address] [place] [address], * (ABNORMAL) URINE CULTURE [34842.2] (03/31/2025 11:05 AM CDT) CULTURE RESULT(A) 04/02/2025 7:06 AM CDT [facility] CULTURE >100,000 CFU/mL Escherichia coli 04/02/2025 7:06 AM CDT [facility] Urine URINE SPECIMEN / Unknown Non-Blood / Unknown 03/31/2025 11:05 AM CDT 03/31/2025 11:05 AM CDT Narrative Organism Antibiotic Method Susceptibility Escherichia coli TRIMETHOPRIM/SULF <=1/19: S Escherichia coli AMPICILLIN 4: S Escherichia coli CEFAZOLIN <=1: S Escherichia coli CEFAZOLIN-UC <=1: S Comment:Cefazolin-UC interpretations are for therapy of uncomplicated UTIs due to E.coli, K.pneumoniae, or P.mirablis. Cefazolin breakpoint is used as a surrogate to predict results for the oral agents - cefdinir, cefuroxime, and cephalexin, when used for therapy of uncomplicated UTIs due to E coli, K, pneumoniae, and P. mirabilis. The FDA recommends cefadroxil susceptibility can be deduced from cefazolin. Escherichia coli GENTAMICIN <=1: S Escherichia coli CEFTRIAXONE <=0.25: S Escherichia coli CEFTAZIDIME <=0.5: S Escherichia coli LEVOFLOXACIN <=0.12: S Escherichia coli CIPROFLOXACIN <=0.06: S Escherichia coli PIPERACILLIN/TAZO <=4: S Escherichia coli AMPICILLIN/SULBACTAM <=2: S Escherichia coli CEFEPIME <=0.12: S Escherichia coli MEROPENEM <=0.25: S Escherichia coli NITROFURANTOIN <=16: S us Eunice SANDHU MICROBIOLOGY Final R esult [facility] [address] [place] [address], * (ABNORMAL) LIPID PANEL W REFLEX MEASURED LDL (01/05/2025 11:43 AM MANAGER CLEANING) Pathologist [facility] CHOLESTEROL, TOTAL 143 <200 mg/dL [facility] HDL CHOLESTEROL 46(L) > OR = 50 mg/dL [facility] TRIGLYCERIDES 166(H) <150 mg/dL [facility] LDL-CHOLESTEROL 73 mg/dL (calc) [facility] Comment: Reference range: <100 Desirable range <100 mg/dL for primary prevention; <70 mg/dL for patients with CHD or diabetic patients with > or = 2 CHD risk factors. LDL-C is now calculated using the Murphy-Elva calculation, which is a validated novel method providing better accuracy than the Friedewald equation in the estimation of LDL-C. Murphy MALDONADO et al. BAO. 2013;310(19): 8875-6886 (http://education.Doormen..YouTube/faq/HDT189) CHOL/HDLC RATIO 3.1 <5.0 (calc) [facility] NON HDL CHOLESTEROL 97 <130 mg/dL (calc) [facility] Comment: For patients with diabetes plus 1 major ASCVD risk factor, treating to a non-HDL-C goal of <100 mg/dL (LDL-C of <70 mg/dL) is considered a therapeutic option. Blood BLOOD SPECIMEN / Unknown 01/05/2025 11:43 AM MANAGER CLEANING 01/05/2025 11:44 AM MANAGER CLEANING Narrative [facility] - 01/06/2025 3:51 AM MANAGER CLEANING FASTING:YES FASTING: YES Eunice SANDHU CHEMISTRY Final R esult [facility] [address] [place] [address], [place] [phone] [facility] [address] [place] [address] * OCCULT BLOOD IFOBT STOOL (01/03/2023 10:26 AM MANAGER CLEANING) STOOL BLOOD ,IFOBT Negative Negative 01/08/2023 10:58 AM MANAGER CLEANING [facility] Stool STOOL SPECIMEN / Unknown Non-Blood / Unknown 01/03/2023 10:26 AM MANAGER CLEANING 01/08/2023 10:26 AM MANAGER CLEANING Eunice SANDHU LABORATORY Final R esult [facility] [address] [place] [address], [place] [phone] from Last 3 Months or Most Recently Relevant to Health Maintenance Insurance [employer] BLUE MR PB ONLY Care Teams Manager Trust Relationship Specialty Start Date End Date Eunice [place] [address] PCP - General Family Practice 01/25/15
--- NOTE | 2025-05-25 17:05 | ED.GENADULT ---
HPI - General Adult General Date Seen: 05/25/25 Chief complaint: Hypertension Stated complaint: Hypertension Time Seen by Provider: 05/25/25 17:05 History of Present Illness HPI narrative: 69 yo F with a history of tremor (on propranolol, recently decreased her dose due to bradycardia), COPD (former smoker, only on albuterol inhaler p.r.n.), hypertension hydrochlorothiazide and losartan, dyslipidemia rosuvastatin, allergies, on Claritin. She presents to the ER today with her adult daughter for evaluation of abdominal pain, nausea, anorexia, abdominal bloating, weight loss a 15 lb past days. They do note that she had a UTI diagnosed in the clinic in early March and treated with a course of antibiotics. She had actually come to the clinic she was as low back pain. Sounds like they UTI was found incidentally and she was probably not having pyelonephritis, their best guess. She was also given some prednisone for her low back pain and that has gotten better. For the past 3 weeks ago she has had symptoms of abdominal discomfort and bloating, mostly in the upper abdomen and sometimes in the epigastrium and also radiates to the right upper quadrant. It is present all the time and last time her abdomen felt normal was a few weeks ago. There is always at least some ache but after she eats he becomes more of an intense pain. It has gotten to the point where she just does not want to eat. She is also feeling bloated all the time. She is sometimes nauseous but no vomiting. Bowel movements have been sporadic. Sometimes she will go a few days without any p.m. and sometime she was a loose brown stool. No black or bloody stools. She has not had any fever. She also has generalized fatigue, generally low energy. Shortness of breath with exertion and has not been wanting to leave the house which is not normal for her. She is not having any swelling in your legs. No chest pain. No cough. When is seen by [facility] provider last week on 05/18. Per those notes she had been experiencing sharp stabbing abdominal pain and fullness with nausea. Also irregular bowel movements, occurring every few days. Sometimes diarrhea sometimes hard. Notes indicate that she was not drinking alcohol and does not think she has cirrhosis. Pulse rate was 52, thought to be due to her propranolol so they cut her propranolol from 20-10 mg daily. She is on propranolol for tremor so watch see if the get worse. The labs on 05/18 showed sodium 135, potassium 3.6, chloride 99, bicarb 26, glucose 97, calcium 9.4, BUN 21, creatinine 0.87. WBC 9.8, hemoglobin 14.7, platelet count 284. Total bili 0.6. ALT 17 AST 19. Alk-phos 63. She had a gallbladder ultrasound which showed multiple gallbladder polyps. Cyst in the right hepatic lobe. No suspicious hepatic masses. IVC and abdominal aorta were normal. Common bile duct was normal at 5 mm. Right kidney was normal. Related Data Home Medications ?Medication ?Instructions ?Recorded ?Confirmed albuterol sulfate 90 mcg/actuation inhalation 05/25/25 aerosol inhaler fluoxetine 20 mg capsule 20 mg PO QAM 05/25/25 05/25/25 hydrochlorothiazide 25 mg tablet 25 mg PO DAILY 05/25/25 05/25/25 losartan 100 mg tablet 100 mg PO DAILY 05/25/25 05/25/25 propranolol 10 mg tablet 10 mg PO DAILY 05/25/25 05/25/25 propranolol 20 mg tablet 20 mg PO DAILY 05/25/25 05/25/25 rosuvastatin 5 mg tablet 5 mg PO QPM 05/25/25 05/25/25 umeclidinium 62.5 mcg-vilanterol inhalation 05/25/25 25 mcg/actuation powdr for inhalation (Anoro Ellipta) Allergies Allergy/AdvReac Type Severity Reaction Status Date / Time codeine Allergy Mild Abdominal Verified 05/25/25 16:59 Pain PFSH PFS Social History Smoking Status: Current every day smoker What tobacco products do you use: cigarettes Smoking packs per day: 0.5 Smoking cigarettes per day: 10.0 Do you use any of these nicotine containing products: None How often do you have a drink containing alcohol: never AUDIT-C Alcohol total score: 0 Non-prescribed substance use: denies use service: No Exam Narrative: Exam Narrative: Constitutional: Appears well-developed . She looks thin but not cachectic.. Alert. Conversant. She looks worn out but overall Non toxic. HENT: Head: Atraumatic. Nose: Nose normal. Mouth/Throat: Oral mucosa is clear and moist. no trismus. Pharynx normal. Tonsils symmetric. No tonsillar enlargement, erythema, or exudate. Eyes: Conjunctivae normal. EOM normal. Pupils equal, round, and reactive to light. No scleral icterus. Neck: Normal range of motion. Neck supple. No tracheal deviation present. No JVD Cardiovascular: Normal rate, regular rhythm. No gallop. No friction rub. No murmur heard. Symmetric radial artery pulses Pulmonary/Chest: Effort normal. No stridor. No respiratory distress. No wheezes. No rales. No rhonchi . No tenderness. Abdominal: Soft. Bowel sounds normal. No distension. No mass. Epigastric> right upper quadrant tenderness. No Guillen sign. No CVA tenderness. No rebound. No guarding. Musculoskeletal: RUE: Normal range of motion. No tenderness. No deformity LUE: Normal range of motion. No tenderness. No deformity RLE: Normal range of motion. No edema. No tenderness. No deformity LLE: Normal range of motion. No edema. No tenderness. No deformity Neurological: Alert and oriented to person, place, and time. Normal strength. CN II-VII intact. No sensory deficit. GCS eye subscore is 4. GCS verbal subscore is 5. GCS motor subscore is 6. Normal coordination Skin: Skin is warm and dry. No rash noted. No pallor. Normal capillary refill. Psychiatric: Normal mood. Normal affect. Const: Vital Signs, click to edit/add: Vital Signs - 24 hr 05/25/25 16:54 05/25/25 19:00 Temperature 97.4 F L Pulse Rate [Pulse Oximeter] 67 59 L Respiratory Rate 18 18 Blood Pressure [Ri ght Upper Arm] 145/83 H 147/69 H Pulse Oximetry 97 95 Oxygen Delivery Me thod Room Air Room Air Course Vital Signs Vital signs: Initial Vital Signs Temperature 97.4 F L 05/25/25 16:54 Temperature Source Temporal Artery Scan 05/25/25 16:54 Pulse Rate 67 05/25/25 16:54 Pulse Rhythm Regular 05/25/25 16:54 Respiratory Rate 18 05/25/25 16:54 Blood Pressure 145/83 H 05/25/25 16:54 Blood Pressure Mean 103 05/25/25 16:54 Blood Pressure Position Sitting 05/25/25 16:54 Pulse Oximetry 97 05/25/25 16:54 Oxygen Delivery Method Room Air 05/25/25 16:54 Vital Signs Temperature 97.4 F L 05/25/25 16:54 Pulse Rate 67 05/25/25 16:54 Respiratory Rate 18 05/25/25 16:54 Blood Pressure 145/83 H 05/25/25 16:54 Pulse Oximetry 97 05/25/25 16:54 Oxygen Delivery Method Room Air 05/25/25 16:54 Temperature 97.4 F L 05/25/25 16:54 Pulse Rate 59 L 05/25/25 19:00 Respiratory Rate 18 05/25/25 19:00 Blood Pressure 147/69 H 05/25/25 19:00 Pulse Oximetry 95 05/25/25 19:00 Oxygen Delivery Method Room Air 05/25/25 19:00 Medications Administered Medications: Discontinued Medications Generic Name Dose Route Start Last Admin Trade Name Freq PRN Reason Stop Dose Admin Sodium Chloride 1,000 mls @ 1,000 mls/hr 05/25/25 17:15 05/25/25 20:43 0.9 % Sodium Chloride 1000 Ml IV 05/25/25 18:14 Infused .Q1H MILAN Infusion Medical Decision Making MDM Narrative Medical decision making narrative: Presented to the Emergency Department with a few week history of epigastric/right upper quadrant abdominal pain, bloating, poor appetite, and 15 lb weight loss. The differential diagnosis of abdominal pain includes: Appendicitis, Bowel Obstruction, Ulcer, Ischemia, Cholecystitis, Diverticulitis, Pancreatitis, UTI, kidney stone, Enteritis/Colitis, amongst many other etiologies. Laboratory testing does not reveal a cause for the patient's pain. CT imaging is concerning for possible pancreatic mass and potential for Lue liver Mets as well. Discussed this finding in detail with the patient and her daughter. I expressed my concern that she may have pancreatic cancer. She will need close outpatient follow-up with their PCP and Oncology referral. It turns out, they have already schedule an appointment for tomorrow morning with their provider and [facility]. I encouraged them to keep that appointment. I did place a phone call to the [facility] provider line but was not able to leave a voicemail. No immediate life threatening cause or need for emergent surgery or hospital admission is detected today. The patient also understands that if they worsen, they should return to the ER right away. I discussed the uncertainty about the diagnosis and answered the patient's questions. Instymeds prescriptions for Leming-12 tablets and Zofran. Opiate precautions reviewed. Lab Data Labs: Lab Results 05/25/25 05/25/25 05/25/25 Range/Units 17:45 18:10 18:47 WBC 9.95 (4.50-11.00) K/uL RBC 4.84 (4.00-5.20) m/uL Hgb 14.2 (12.0-16.0) gm/dL Hct 42.9 (33.0-51.0) % MCV 89 (80-100) fL MCH 29 (26-34) pg MCHC 33 (32-36) gm/dL RDW Coeff of Terrence 13.2 (11.5-15.5) % Plt Count 266 (140-440) K/uL Neut % (Auto) 66.7 (42.0-72.0) % Lymph % (Auto) 16.6 L (20-44) % [place] % (Auto) 12.4 H (0.0-11.0) % Eos % (Auto) 2.3 (0.0-7.0) % Baso % (Auto) 0.6 (0.0-3.0) % Neut # (Auto) 6.64 (1.7-7.0) K/uL Lymph # (Auto) 1.70 (0.90-2.90) K/uL [place] # (Auto) 1.20 H (0.00-0.90) K/UL Eos # (Auto) 0.23 (0.00-0.50) K/uL Baso # (Auto) 0.06 (0.00-0.30) K/uL Abs Immat Gran (auto) 0.14 (0.00-0.30) K/uL Imm/Tot Granulo (auto) 1.4 % Sodium 134 L (135-149) mmol/L Potassium 3.6 (3.6-5.1) mmol/L Chloride 98 (96-114) mmol/L Carbon Dioxide 28 (20-32) mmol/L Anion Gap 8 (7-15) mEq/L BUN 17 (7-30) mg/dL Creatinine 0.9 (0.5-1.5) mg/dL Estimated Creat Clear 48.30 Estimated GFR 68 ml/min Glucose 94 (60-115) mg/dL Lactate 1.1 (0.5-1.9) mmol/L Calcium 9.5 (8.4-10.6) mg/dL Total Bilirubin 0.7 (0.1-1.5) mg/dL AST 41 H (12-35) U/L ALT 32 (4-35) U/L Alkaline Phosphatase 74 (40-150) U/L Troponin I < 0.01 (0.01-0.04) ng/mL NT-Pro-B Natriuret Pep 103 (See Note) pg/mL Total Protein 7.5 (6.0-8.3) g/dL Albumin 4.4 (3.3-5.0) g/dL Lipase 54 (23-300) U/L TSH 1.800 (0.270-4.200) uIU/mL Urine Color Yellow (Yellow) Urine Appearance Clear (Clear) Urine pH 7.0 (5.0-8.5) Ur Specific [place] 1.015 (1.000-1.030) Urine Protein Negative (Negative) Urine Glucose (UA) Negative (Negative) Urine Ketones Negative (Negative) Urine Blood Negative (Negative) Urine Nitrite Negative (Negative) Urine Bilirubin Negative (Negative) Urine Urobilinogen 0.2 (0.2-1.0) Ur Leukocyte Esterase 1+ A (Negative) Urine RBC 0-2 (0-2) Urine WBC 0-2 (0-5) Ur Squamous Epith Cells Few (None-Few) Urine Bacteria Moderate A (None) Monoscreen Negative (Negative) Imaging Data CT scan - abdomen: Attestation: I have reviewed the pertinent imaging results. Radiologist's impression: Impression: 1. There is a focal irregularity along the mid to distal pancreas which appears to be a cystic and solid mass measuring up to 2.8 centimeters with adjacent stranding. No prior examination is available for comparison. Primary differential consideration is malignancy. Prior necrotizing pancreatitis with a pancreatic pseudocyst could give a similar appearance. 2. Hypodense but indeterminate density hepatic lesions are noted. Suspected biliary cysts, but if pancreatic neoplasm is present, metastasis is not excluded. 3. Severe emphysema with a trace left effusion. ECG Data Attestation: I personally reviewed and interpreted this ECG as follows: Interpretation: Normal sinus [id number] Rate: 61 [place]: 150 QRS axis: Normal axis. No pathologic Q-waves. ST segment/T wave: No ST segment elevation or depression. Artifact in leads V4 and V6. QTc: 438 Discharge Plan Discharge Clinical Impression: Mass of pancreas, Abdominal pain Patient Disposition: Home, Self-Care Condition: Stable Instructions: Pancreatic Cancer (DC), Abdominal Pain (ED) Additional Instructions: As we discussed, your CT scan to confirm is concerning for a possible cancer in your pancreas. Although the CT scan is concerning, it is not definitive. It is very important for you to have a checkup with her doctor's office tomorrow morning for further workup to see if this truly is a cancer or not and to help determine what treatment options are available. Please follow-up with your doctors tomorrow morning in the [facility] clinic as you already have scheduled. You can use the nausea medication and pain medication as needed. Be careful because Leming can cause dizziness, drowsiness and constipation. Do not drive for 6 hours after taking Leming. Leming can be addictive. As we discussed, if you have any worsening symptoms or any problems, you can come back to the ER any time for recheck. Prescriptions: No Action propranolol 10 mg tablet 10 mg PO DAILY hydrochlorothiazide 25 mg tablet 25 mg PO DAILY albuterol sulfate 90 mcg/actuation HFA aerosol inhaler inhalation propranolol 20 mg tablet 20 mg PO DAILY losartan 100 mg tablet 100 mg PO DAILY fluoxetine 20 mg capsule 20 mg PO QAM rosuvastatin 5 mg tablet 5 mg PO QPM umeclidinium-vilanterol [Anoro Ellipta] 62.5-25 mcg/actuation blister with device inhalation Follow Up/Referrals: Eunice Rae PA-C [Primary Care Provider, Family Practice] Stand Alone Forms: [employer] Info Instructions
--- NOTE | 2025-05-25 17:14 | CRLHL7_ITS ---
For Patients: As a result of the Century Cures Act, medical imaging exams and procedure reports are released immediately into your electronic medical record. You may view this report before your referring provider. If you have questions, please contact your health care provider. Indication: Abdominal pain, weight loss, bloating, anorexia Technique: CT through the abdomen and pelvis following 69 mL Isovue 370 IV contrast Comparison: None Findings: Lower chest: Severe emphysema. Trace left effusion and atelectasis. Hepatobiliary: Scattered indeterminate low-dense hepatic lesions. Spleen: Unremarkable. Pancreas: Focal irregularity of the mid to distal pancreas with what appears to be a cystic and solid mass measuring 2.8 x 2.0 centimeters with adjacent stranding. Adrenal glands: Mild nodular thickening of the left adrenal gland. Kidneys: No significant parenchymal abnormality appreciated. No visualized calculi. No hydronephrosis. Bowel: Diverticulosis. No obstruction. No focal perienteric or pericolonic stranding is appreciated. The appendix is visualized and appears unremarkable. Vascular: Calcified atherosclerosis. Lymph nodes: No gross lymphadenopathy. Peritoneum: No free air. No free fluid. : No acute abnormality appreciated. Soft tissues: No acute abnormality appreciated. Bones: No acute fracture. No lytic or blastic lesion. Mild spondylosis. Impression: 1. There is a focal irregularity along the mid to distal pancreas which appears to be a cystic and solid mass measuring up to 2.8 centimeters with adjacent stranding. No prior examination is available for comparison. Primary differential consideration is malignancy. Prior necrotizing pancreatitis with a pancreatic pseudocyst could give a similar appearance. 2. Hypodense but indeterminate density hepatic lesions are noted. Suspected biliary cysts, but if pancreatic neoplasm is present, metastasis is not excluded. 3. Severe emphysema with a trace left effusion. Please note that all CT scans at this facility use dose modulation, iterative reconstruction, and/or weight-based dosing when appropriate to reduce radiation dose to as low as reasonably achievable. Dictated by Alessandro Lehman MD @ 05/25/2025 7:18:54 PM (Electronically Signed)
[2025-05-25] MEDS: 0.9 % SODIUM CHLORIDE 1000 ml 1,000 ML IV (17:50)
[2025-05-25 17:52] LABS: Lactate* 1.1 mmol/L (0.5-1.9)
[2025-05-25 17:57] LABS: Basophils Absolute Auto 0.06 K/uL (0.00-0.30); Basophils Percent Auto 0.6 % (0.0-3.0); Eosinophils Absolute Auto 0.23 K/uL (0.00-0.50); Eosinophils Percent Auto 2.3 % (0.0-7.0); Hematocrit 42.9 % (33.0-51.0); Hemoglobin* 14.2 gm/dL (12.0-16.0); Immature Granulocytes Abs Auto 0.14 K/uL (0.00-0.30); Immature Granulocytes Pct Auto 1.4 %; Lymphocytes Percent Auto 16.6 % (20-44); Mean Corpuscular HGB Conc 33 gm/dL (32-36); Mean Corpuscular Hemoglobin 29 pg (26-34); Mean Corpuscular Volume 89 fL (80-100); Monocytes Percent Auto 12.4 % (0.0-11.0); Neutrophils Absolute Auto 6.64 K/uL (1.7-7.0); Neutrophils Percent Auto 66.7 % (42.0-72.0); Platelet Count* 266 K/uL (140-440); RDW Coefficient of Variation % 13.2 % (11.5-15.5); Red Blood Count 4.84 m/uL (4.00-5.20); White Blood Count* 9.95 K/uL (4.50-11.00)
[2025-05-25 18:02] LABS: Slide Review Reflex No
[2025-05-25 18:09] LABS: Albumin* 4.4 g/dL (3.3-5.0); Chloride* 98 mmol/L (96-114)
[2025-05-25 18:10] LABS: Potassium* 3.6 mmol/L (3.6-5.1); Sodium* 134 mmol/L (135-149)
[2025-05-25 18:12] LABS: Alanine Aminotransferase* 32 U/L (4-35); Anion Gap 8 mEq/L (7-15); Aspartate Amino Transferase* 41 U/L (12-35); Blood Urea Nitrogen* 17 mg/dL (7-30); Carbon Dioxide* 28 mmol/L (20-32); Creatinine* 0.9 mg/dL (0.5-1.5); Estimated Glomerular Filt Rate 68 ml/min
[2025-05-25 18:13] LABS: Alkaline Phosphatase* 74 U/L (40-150); Bilirubin Total* 0.7 mg/dL (0.1-1.5); Calcium* 9.5 mg/dL (8.4-10.6); Glucose* 94 mg/dL (60-115); Lipase* 54 U/L (23-300); Total Protein* 7.5 g/dL (6.0-8.3)
[2025-05-25 18:19] LABS: Appearance Urine Clear (Clear); Bilirubin Urine Negative (Negative); Color Urine Yellow (Yellow); Glucose Urine Negative (Negative); Ketones Urine Negative (Negative); Specific Gravity Urine 1.015 (1.000-1.030)
[2025-05-25 18:20] LABS: Blood Urine Negative (Negative); Leukocyte Esterase Urine 1+ (Negative); Nitrite Urine Negative (Negative); Protein Urine Negative (Negative); Urobilinogen Urine 0.2 (0.2-1.0)
[2025-05-25 18:28] LABS: NT Pro B Type NatriureticPept* 103 pg/mL (See Note); Troponin I* < 0.01 ng/mL (0.01-0.04)
[2025-05-25 18:46] LABS: RBC Urine 0-2 (0-2); WBC Urine 0-2 (0-5)
[2025-05-25 18:47] LABS: Bacteria Urine Moderate; Squamous Epithelial Cell Urine Few (None-Few)
[2025-05-25 19:00] VITALS: BP 147/69; PULSE 59; RESP 18; O2SAT 95
[2025-05-25 19:11] LABS: Mono Screen* Negative (Negative)
--- NOTE | 2025-05-27 16:46 | ED.GENADULT ---
HPI - General Adult General Date Seen: 05/25/25 Chief complaint: Hypertension Stated complaint: Hypertension Time Seen by Provider: 05/25/25 17:05 History of Present Illness HPI narrative: Addendum to ER visit from 05/25 Urine culture came back today growing pansensitive E coli. I contacted the patient on her cell phone at home. She has been doing her follow-up with her PCP for the pancreatic mass. Not really having dysuria, urgency, or frequency but based on history of UTIs, will put her on a course of antibiotics to treat this 1. Additionally we do want any lingering bacteria to be, issue if she does have to initiate treatment for pancreatic cancer. Prescription for cephalexin 500 b.i.d. for 5 days sent to her pharmacy. She tends to be sensitive to antibiotics and get yeast infections easily. Will also send in a p.r.n. prescription for fluconazole. Questions answered. 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 Related Data Home Medications ?Medication ?Instructions ?Recorded ?Confirmed albuterol sulfate 90 mcg/actuation inhalation 05/25/25 aerosol inhaler fluoxetine 20 mg capsule 20 mg PO QAM 05/25/25 05/25/25 hydrochlorothiazide 25 mg tablet 25 mg PO DAILY 05/25/25 05/25/25 losartan 100 mg tablet 100 mg PO DAILY 05/25/25 05/25/25 propranolol 10 mg tablet 10 mg PO DAILY 05/25/25 05/25/25 propranolol 20 mg tablet 20 mg PO DAILY 05/25/25 05/25/25 rosuvastatin 5 mg tablet 5 mg PO QPM 05/25/25 05/25/25 umeclidinium 62.5 mcg-vilanterol inhalation 05/25/25 25 mcg/actuation powdr for inhalation (Anoro Ellipta) Previous Rx's ?Medication ?Instructions ?Recorded cephalexin 500 mg capsule 500 mg PO BID #10 caps 05/27/25 fluconazole 150 mg tablet 150 mg PO DAILY PRN yeast #1 tab 05/27/25 Allergies Allergy/AdvReac Type Severity Reaction Status Date / Time codeine Allergy Mild Abdominal Verified 05/25/25 16:59 Pain PFSH PFSH Social History Smoking Status: Current every day smoker What tobacco products do you use: cigarettes Smoking packs per day: 0.5 Smoking cigarettes per day: 10.0 Do you use any of these nicotine containing products: None How often do you have a drink containing alcohol: never AUDIT-C Alcohol total score: 0 Non-prescribed substance use: denies use service: No Course Vital Signs Vital signs: Initial Vital Signs Temperature 97.4 F L 05/25/25 16:54 Temperature Source Temporal Artery Scan 05/25/25 16:54 Pulse Rate 67 05/25/25 16:54 Pulse Rhythm Regular 05/25/25 16:54 Respiratory Rate 18 05/25/25 16:54 Blood Pressure 145/83 H 05/25/25 16:54 Blood Pressure Mean 103 05/25/25 16:54 Blood Pressure Position Sitting 05/25/25 16:54 Pulse Oximetry 97 05/25/25 16:54 Oxygen Delivery Method Room Air 05/25/25 16:54 Vital Signs Temperature 97.4 F L 05/25/25 16:54 Pulse Rate 67 05/25/25 16:54 Respiratory Rate 18 05/25/25 16:54 Blood Pressure 145/83 H 05/25/25 16:54 Pulse Oximetry 97 05/25/25 16:54 Oxygen Delivery Method Room Air 05/25/25 16:54 Temperature 97.4 F L 05/25/25 16:54 Pulse Rate 59 L 05/25/25 19:00 Respiratory Rate 18 05/25/25 19:00 Blood Pressure 147/69 H 05/25/25 19:00 Pulse Oximetry 95 05/25/25 19:00 Oxygen Delivery Method Room Air 05/25/25 19:00 Medications Administered Medications: Discontinued Medications Generic Name Dose Route Start Last Admin Trade Name Raúlq PRN Reason Stop Dose Admin Sodium Chloride 1,000 mls @ 1,000 mls/hr 05/25/25 17:15 05/25/25 20:43 0.9 % Sodium Chloride 1000 Ml IV 05/25/25 18:14 Infused .Q1H MILAN Infusion Medical Decision Making Lab Data Labs: Lab Results 05/25/25 05/25/25 05/25/25 Range/Units 17:45 18:10 18:47 WBC 9.95 (4.50-11.00) K/uL RBC 4.84 (4.00-5.20) m/uL Hgb 14.2 (12.0-16.0) gm/dL Hct 42.9 (33.0-51.0) % MCV 89 (80-100) fL MCH 29 (26-34) pg MCHC 33 (32-36) gm/dL RDW Coeff of Terrence 13.2 (11.5-15.5) % Plt Count 266 (140-440) K/uL Neut % (Auto) 66.7 (42.0-72.0) % Lymph % (Auto) 16.6 L (20-44) % [place] % (Auto) 12.4 H (0.0-11.0) % Eos % (Auto) 2.3 (0.0-7.0) % Baso % (Auto) 0.6 (0.0-3.0) % Neut # (Auto) 6.64 (1.7-7.0) K/uL Lymph # (Auto) 1.70 (0.90-2.90) K/uL [place] # (Auto) 1.20 H (0.00-0.90) K/UL Eos # (Auto) 0.23 (0.00-0.50) K/uL Baso # (Auto) 0.06 (0.00-0.30) K/uL Abs Immat Gran (auto) 0.14 (0.00-0.30) K/uL Imm/Tot Granulo (auto) 1.4 % Sodium 134 L (135-149) mmol/L Potassium 3.6 (3.6-5.1) mmol/L Chloride 98 (96-114) mmol/L Carbon Dioxide 28 (20-32) mmol/L Anion Gap 8 (7-15) mEq/L BUN 17 (7-30) mg/dL Creatinine 0.9 (0.5-1.5) mg/dL Estimated Creat Clear 48.30 Estimated GFR 68 ml/min Glucose 94 (60-115) mg/dL Lactate 1.1 (0.5-1.9) mmol/L Calcium 9.5 (8.4-10.6) mg/dL Total Bilirubin 0.7 (0.1-1.5) mg/dL AST 41 H (12-35) U/L ALT 32 (4-35) U/L Alkaline Phosphatase 74 (40-150) U/L Troponin I < 0.01 (0.01-0.04) ng/mL NT-Pro-B Natriuret Pep 103 (See Note) pg/mL Total Protein 7.5 (6.0-8.3) g/dL Albumin 4.4 (3.3-5.0) g/dL Lipase 54 (23-300) U/L TSH 1.800 (0.270-4.200) uIU/mL Urine Color Yellow (Yellow) Urine Appearance Clear (Clear) Urine pH 7.0 (5.0-8.5) Ur Specific [place] 1.015 (1.000-1.030) Urine Protein Negative (Negative) Urine Glucose (UA) Negative (Negative) Urine Ketones Negative (Negative) Urine Blood Negative (Negative) Urine Nitrite Negative (Negative) Urine Bilirubin Negative (Negative) Urine Urobilinogen 0.2 (0.2-1.0) Ur Leukocyte Esterase 1+ A (Negative) Urine RBC 0-2 (0-2) Urine WBC 0-2 (0-5) Ur Squamous Epith Cells Few (None-Few) Urine Bacteria Moderate A (None) Monoscreen Negative (Negative) Discharge Plan Discharge Clinical Impression: Mass of pancreas, Abdominal pain Patient Disposition: Home, Self-Care Condition: Stable Instructions: Pancreatic Cancer (DC), Abdominal Pain (ED) Additional Instructions: As we discussed, your CT scan to confirm is concerning for a possible cancer in your pancreas. Although the CT scan is concerning, it is not definitive. It is very important for you to have a checkup with her doctor's office tomorrow morning for further workup to see if this truly is a cancer or not and to help determine what treatment options are available. Please follow-up with your doctors tomorrow morning in the [facility] clinic as you already have scheduled. You can use the nausea medication and pain medication as needed. Be careful because Alpine can cause dizziness, drowsiness and constipation. Do not drive for 6 hours after taking Alpine. Alpine can be addictive. As we discussed, if you have any worsening symptoms or any problems, you can come back to the ER any time for recheck. Prescriptions: New fluconazole 150 mg tablet 150 mg PO DAILY PRN (Reason: yeast) Qty: 1 0RF cephalexin 500 mg capsule 500 mg PO BID Qty: 10 0RF No Action propranolol 10 mg tablet 10 mg PO DAILY hydrochlorothiazide 25 mg tablet 25 mg PO DAILY albuterol sulfate 90 mcg/actuation HFA aerosol inhaler inhalation propranolol 20 mg tablet 20 mg PO DAILY losartan 100 mg tablet 100 mg PO DAILY fluoxetine 20 mg capsule 20 mg PO QAM rosuvastatin 5 mg tablet 5 mg PO QPM umeclidinium-vilanterol [Anoro Ellipta] 62.5-25 mcg/actuation blister with device inhalation Follow Up/Referrals: Eunice Rae PA-C [Primary Care Provider, Family Practice] Stand Alone Forms: [employer] Info Instructions
== END 2025-05-25 20:49 | disposition home or self-care (01) ==
PROVIDERS: Emergency Provider Emergency Medicine; PCP Physician Assistant Medical
DX: R10.9 Unspecified abdominal pain (principal); K86.9 Disease of pancreas, unspecified; B96.20 Unspecified Escherichia coli [E. coli] as the cause of diseases classified elsewhere
CPT/HCPCS: 36415; 74177; 80053; 81001; 83605; 83690; 83880; 84443; 84484; 85025; 86308; 87086; 93005; 99281; 99283; 99284; 99285; J7030; Q9967

== ENCOUNTER 2025-07-05 01:48 | Inpatient (IN) | payer MEDICARE, BC, SELFPAY ==
[2025-07-05] VITALS (8 sets, daily range): BP systolic 102–143; BP diastolic 63–89; PULSE 62–81; RESP 16–20; TEMP 36.1–36.8; O2SAT 93–98; BMI 21.0
--- OUTSIDE RECORDS SUMMARY | 2025-07-05 03:11 | XMS_ITS | Clinical Summary ---
Author Organization [facility] Address [address] [place] [address] Care Team Providers Care Weigh And Charge Worker Name Role Phone Eunice Rae Primary Care Provider March, Jessa Ignacio RN, BSN Unavailable [facility]available [facility] Unavailable Srikanth Tolliver MD Unavailable [phone] Nicol Calix DIRECTOR TRANSLATIONAL Unavailable Lisa Yee MD Unavailable [phone] Allergies Active Allergy Reactions Criticality Noted Date Comments Amlodipine Other - Describe In Comment Field 03/25/2019 Extreme fatigue and tiredness. Some dizziness. Codeine GI Upset 06/11/2008 Medications CLARITIN 10 MG TAB take 1 tablet (10 mg) by oral route once daily/prn 0 06/11/20 08 Active cholecalciferol (VITAMIN D-3) 2,000 unit capsule Take 3 capsules by mouth once daily. 0 05/07/20 15 Active hydrOXYzine HCL (ATARAX) 25 mg tabletIndicatio ns:Anxiety Take 1 tablet by mouth every 6 hours if needed for Anxiety. 25 tablet 1 09/06/20 20 Active rosuvastatin (CRESTOR) 5 mg tabletIndicatio ns:Hypercholest erolemia TAKE 1 TABLET BY MOUTH AT BEDTIME 90 Tablet 2 12/16/19 25 Active hydroCHLOROthia zide 25 mg tabletIndicatio ns:HTN (hypertension) Take 1 Tablet (25 mg) by mouth once daily. 90 Tablet 3 01/05/20 25 Active FLUoxetine 20 mg capsuleIndicati ons:Anxiety TAKE 1 CAPSULE BY MOUTH EVERY DAY IN THE MORNING 90 Capsule 2 02/11/20 25 Active albuterol HFA 90 mcg/actuation inhalerIndicati ons:Chronic obstructive pulmonary disease, unspecified COPD type (HC) INHALE 1 TO 2 PUFFS BY MOUTH EVERY 4 HOURS NEEDED FOR SHORTNESS OF BREATH OR FOR WHEEZE 25.5 Each 3 02/21/20 25 Active umeclidinium-vi lanteroL (Anoro Ellipta) 62.5-25 mcg/actuation inhalerIndicati ons:Chronic obstructive pulmonary disease, unspecified COPD type (HC) Inhale 1 Puff by mouth once daily. Discard inhaler 6 weeks after opening or when the counter reads '0' (after all blisters have been used), whichever comes first. 180 Each 04/06/20 25 Active propranoloL 10 mg tabletIndicatio ns:Benign essential tremor,HTN (hypertension) Take 1 Tablet (10 mg) by mouth once daily. 90 Tablet 1 05/18/20 25 Active LORazepam 0.5 mg tabIndications: Mass of pancreas (HC),Anxiety Take 1 Tablet (0.5 mg) by mouth every 6 hours if needed for Anxiety. 20 Tablet 05/27/20 25 Active lidocaine-prilo elijah 2.5%-2.5% creamIndication s:Adenocarcinom a of pancreas (HC) Apply topically to affected area(s) each time if needed (port access). 30 g 3 06/12/20 25 Active sennosides-docu sate (SENOKOT S) (8.6-50 mg) tabletIndicatio ns:Adenocarcino ma of pancreas (HC) Take 1 Tablet by mouth two times daily. 20 Tablet 06/17/20 25 Active traMADoL (ULTRAM) 50 mg tabletIndicatio ns:Adenocarcino ma of pancreas (HC) Take 1 Tablet (50 mg) by mouth every 6 hours if needed for Pain. 15 Tablet 06/18/20 25 Active fluconazole (DIFLUCAN) 150 mg tablet TAKE 150 MG ORALLY DAILY NEEDED FOR YEAST 05/27/20 25 Active losartan (COZAAR) 50 mg tabletIndicatio ns:HTN (hypertension) TAKE 1.5 TABLETS BY MOUTH ONCE DAILY. 135 Tablet 2 06/27/20 25 Active diphenoxylate-a tropine (2.5-0.025 mg) (LomotiL) 2.5-0.025 mg tabletIndicatio ns:Chemotherapy induced diarrhea Take 1 Tablet by mouth 4 times daily if needed for Diarrhea. 30 Tablet 06/30/20 25 Active hyoscyamine sublingual (LEVSIN SL) 0.125 mg sublIndications :Abdominal cramping Place 1 Tablet (0.125 mg) under the tongue every 4 hours if needed for Colic. Take for abdominal cramps as needed 30 Tablet 1 07/03/20 25 Active aspirin (ECOTRIN) 81 mg enteric coated tablet Take 1 tablet by mouth once daily with a meal. 0 05/24/20 15 025 Discontinued(*P atient states no longer taking) losartan 50 mg tabletIndicatio ns:HTN (hypertension) Take 1.5 Tablets (75 mg) by mouth once daily. 135 Tablet 03/30/20 25 025 Discontinued dexAMETHasone 4 mg tabletIndicatio ns:Adenocarcino ma of pancreas (HC) Take 2 Tablets (8 mg) by mouth once daily with a meal. Take on days 2 and 3 of each cycle. 16 Tablet 2 06/12/20 25 025 Discontinued(*A llergic/Adverse Rxn/Side Effects) ondansetron (ZOFRAN) 8 mg tabletIndicatio ns:Adenocarcino ma of pancreas (HC) Take 1 Tablet (8 mg) by mouth every 8 hours if needed for Nausea/Vomit ing. 30 Tablet 2 06/12/20 25 025 Discontinued(*A llergic/Adverse Rxn/Side Effects) prochlorperazin e (COMPAZINE) 5 mg tabletIndicatio ns:Adenocarcino ma of pancreas (HC) Take 1 Tablet (5 mg) by mouth every 6 hours if needed for Nausea/Vomit ing. 30 Tablet 2 06/12/20 25 025 Discontinued(*A llergic/Adverse Rxn/Side Effects) loperamide (IMODIUM) 2 mg tabletIndicatio ns:Adenocarcino ma of pancreas (HC) Take 4 mg by mouth at the onset of diarrhea, then 2 mg every 2 hours as needed for diarrhea. Max 16 mg in 24 hours. 30 Tablet 2 06/12/20 25 025 Discontinued(*A llergic/Adverse Rxn/Side Effects) traMADol ER 24 hour 100 mg tabletIndicatio ns:Adenocarcino ma of pancreas (HC) Take 1 Tablet (100 mg) by mouth once daily. 10 Tablet 06/17/20 25 025 Discontinued(*E rror/yard foreman error) oxyCODONE (ROXICODONE) 5 mg immediate release tabletIndicatio ns:Adenocarcino ma of pancreas (HC) Take 1 Tablet (5 mg) by mouth every 6 hours if needed for Pain. 10 Tablet 06/22/20 25 025 Discontinued(*M ed complete/Regime n complete/Level of care change) Active Problems Problem Noted Date Diagnosed Date Dehydration 06/24/2025 Other nursing home (current) drug therapy Encounter for screening for other viral diseases 06/19/2025 Adenocarcinoma of pancreas 06/08/2025 Cancer Staging:Clinical stage from 06/22/2025:Stage IV(cT2, cN1, cM1) - Signed by Srikanth Tolliver MD on 06/22/2025 Tobacco use disorder 05/12/2009 Encounters Date Type Department Care Team Description 07/03/2025 11:00 AM CDT Orders Only [facility] [address] [facility] [address] [place] [address] <No scans attached> 07/03/2025 10:00 AM CDT Office Visit [facility] [address] [place] [address] [address] [place] [address] Srikanth Tolliver MD Follow Up (Plan management ) 07/03/2025 Refill [facility] [address] [place] [address] Eunice Rae PA Refill Request (Anoro Ellipta) 07/02/2025 2:30 PM CDT - 07/02/2025 11:59 PM CDT Hospital Encounter [facility] [address] [place] [address] Dehydration (Primary Dx); Adenocarcinoma of pancreas (HC) 07/02/2025 Travel 06/30/2025 10:15 AM CDT Office Visit [facility] [address] [place] [address] Nicol Calix, DIRECTOR TRANSLATIONAL Follow Up (Adenocarcinoma of pancreas ) 06/30/2025 8:59 AM CDT - 06/30/2025 11:59 PM CDT Hospital Encounter [facility] [address] [facility] [place] [address] Adenocarcinoma of pancreas (HC) (Primary Dx); Dehydration 06/30/2025 Travel 06/30/2025 Telephone [facility] [address] [facility] [place] [address] Nicol Calix, DIRECTOR TRANSLATIONAL Error-please disregard 06/29/2025 Telephone [facility] [address] [facility] [place] [address] Nicol Calix, DIRECTOR TRANSLATIONAL General Illness/Other 06/29/2025 Telephone [facility] [address] [place] [address] Paige Chavez, MS, [facility] Results (Genetic testing/) 06/28/2025 Travel 06/26/2025 11:28 AM CDT - 06/26/2025 11:59 PM CDT Hospital Encounter [facility] [address] [facility] [place] [address] Srikanth Tolliver MD Dehydration (Primary Dx); Adenocarcinoma of pancreas (HC); Other nursing home (current) drug therapy; Encounter for screening for other viral diseases 06/26/2025 Telephone [facility] [address] [facility] [address] Kerry Jensen RN Follow Up 06/26/2025 Travel 06/25/2025 10:51 AM CDT - 06/25/2025 11:59 PM CDT Hospital Encounter [facility] [address] [place] [address] Dehydration (Primary Dx); Adenocarcinoma of pancreas (HC) 06/25/2025 Telephone [facility] [address] [facility] [address] Nicol Calix, DIRECTOR TRANSLATIONAL General Illness/Other 06/25/2025 Refill [facility] [address] [facility] [address] Eunice Rae PA Refill Request (Losartan) 06/24/2025 8:15 AM CDT Office Visit [address] [place] [address] Nicol Calix, DIRECTOR TRANSLATIONAL Follow Up (Adenocarcinoma of pancreas) 06/24/2025 7:30 AM CDT - 06/24/2025 11:59 PM CDT Hospital Encounter [facility] [address] [facility] [place] [address] Adenocarcinoma of pancreas (HC) (Primary Dx); Other nursing home (current) drug therapy; Encounter for screening for other viral diseases 06/24/2025 Orders Only [facility] [address] [place] [address] Srikanth Tolliver MD Lab (Genetic ) 06/24/2025 Orders Only [facility] [address] [facility] [place] [address] Nicol Calix, DIRECTOR TRANSLATIONAL Error-please disregard 06/24/2025 Travel 06/23/2025 9:00 AM CDT Telemedicine [facility] [address] [place] [address] Paige Chavez, MS, [facility] Counseling (Cancer genetics) 06/23/2025 Patient Outreach [facility] [address] [place] [address] Mely Funk LGSW Social Work Contact 06/23/2025 Social Work Encounter [facility] [address] [place] [address] Mely Funk LGSW Social Work Contact 06/23/2025 Telephone [facility] [address] [place] [address] [facility] Financial Questions/Services 06/22/2025 Telephone [facility] [address] [facility] [place] [address] Rahel Kellogg PA Medication Management (tramadol) 06/19/2025 8:30 AM CDT Office Visit [facility] [address] [place] [address] Srikanth Tolliver MD 06/19/2025 Orders Only [facility] [address] [place] [address] Nicol Calix NP <No scans attached> 06/19/2025 Travel 06/18/2025 9:00 AM CDT Education [facility] [address] [place] [address] Education 06/18/2025 6:54 AM CDT - 06/18/2025 11:59 PM CDT Hospital Encounter [facility] [address] [place] [address] Srikanth Tolliver MD Adenocarcinoma of pancreas (HC) 06/18/2025 6:45 AM CDT - 06/18/2025 6:53 AM CDT Hospital Encounter [facility] [address] [place] [address] Adenocarcinoma of pancreas (HC) (Primary Dx) 06/18/2025 Orders Only [facility] [address] [place] [address] Rahel Kellogg PA <No scans attached> 06/18/2025 Travel 06/18/2025 Patient Outreach [facility] [address] [place] [address] Mahogany Tamez RN Surgical Followup (/Ultrasound and Fluoroscopic Guided Mediport Placement //) 06/17/2025 4:03 PM CDT Anesthesia Event [facility] [address] [place] [address] Elvin Echols CRNA 06/17/2025 3:45 PM CDT - 06/17/2025 5:10 PM CDT Surgery [facility] [address] [place] [address] Valeria Elliott DO Ultrasound and Fluoroscopic Guided Mediport Placement 06/17/2025 12:59 PM CDT - 06/17/2025 5:56 PM CDT Hospital Encounter [facility] [address] [place] [address] Valeria Elliott DO Adenocarcinoma of pancreas (HC) (Primary Dx) Discharge Disposition: Home Self Care 06/17/2025 Travel 06/16/2025 Telephone [facility] [address] [place] [address] Kiah Abbott cancer genetics 06/14/2025 Travel 06/13/2025 Travel 06/12/2025 Nurse/Clinic Staff Only [facility] [address] [place] [address] Srikanth Tolliver MD 06/11/2025 8:00 AM CDT Orders Only [facility] [address] [place] [address] Lab, [place] <No scans attached> 06/11/2025 Orders Only [facility] [address] [place] [address] Valeria Elliott DO <No scans attached> 06/11/2025 Telephone [facility] [address] [place] [address] Valeria Elliott DO Surgery Scheduled 06/11/2025 Telephone [facility] [address] [facility] [address] [place] [address] [facility] Appointment 06/10/2025 3:30 PM CDT Office Visit [facility] [address] [place] [address] Srikanth Tolliver MD Consult 06/09/2025 Travel 06/08/2025 Telephone [facility] [place] [address] [facility] [place] [address] [facility] Referral 06/08/2025 Orders Only [facility] [address] [facility] [place] [address] Srikanth Tolliver MD <No scans attached> 06/02/2025 9:38 AM CDT Anesthesia Event [facility] [address] [place] [address] Caterina Mortensen MD 06/02/2025 9:35 AM CDT - 06/02/2025 10:40 AM CDT Surgery [facility] [address] [place] [address] Dave Kc MD ENDOSCOPIC ULTRASOUND FINE NEEDLE ASPIRATE UPPER 06/02/2025 8:32 AM CDT - 06/02/2025 12:10 PM CDT Hospital Encounter [facility] [address] [place] [address] Dave Kc MD Discharge Disposition: Home Self Care 06/01/2025 1:40 PM CDT Office Visit [facility] [address] [place] [address] Eunice Rae PA Preoperative Exam (ENDOSCOPIC ULTRASOUND FINE NEEDLE ASPIRATE UPPER) 06/01/2025 Travel 05/27/2025 10:30 AM CDT Ancillary Procedure [facility] [address] [place] [address] 05/27/2025 Telephone [facility] [address] [place] [address] Eunice Rae PA Concerns (Results ed) 05/27/2025 Telephone [facility] [address] [place] [address] [facility] Referral (Mass of pancreas) 05/27/2025 Orders Only [facility] [address] [place] [address] Eunice Rae PA <No scans attached> 05/27/2025 Travel 05/26/2025 10:10 AM CDT Office Visit [facility] [address] [place] [address] Eunice Rae PA ER Follow up (Post ER visit) 05/25/2025 Orders Only [facility] Scanner 1 scan: (1-Ord) [place], CT ABD PELVIS W CON, 05/25/2025 05/25/2025 Orders Only [facility] Scanner 1 scan: (1-Ord) [facility], EKG, 05/25/2025 05/25/2025 Orders Only [facility] Scanner 1 scan: (1-Ord) [facility], ABOMEN PELVIS W/CONTRAST, 05/25/2025 05/25/2025 Travel 05/25/2025 Nurse Triage [facility] [address] [facility] [place] [address] Eunice Rae PA 05/25/2025 Telephone [facility] [address] [place] [address] Eunice Rae PA Concerns 05/20/2025 9:00 AM CDT Ancillary Procedure [facility] [address] [facility] [address] [place] [address] 05/19/2025 Travel 05/18/2025 10:30 AM CDT Office Visit [facility] [address] [facility] [address] Eunice Rae PA Abdominal Pain (Upper central pain and on each side, very random. 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 Gender Identity Not on file Sexual Orientation Not on file Obstetrics History Last Filed Vital Signs Vital Sign Reading Time Taken Comments Blood Pressure 115/55 07/03/2025 9:54 AM CDT Pulse 60 07/03/2025 9:54 AM CDT Temperature 36.9 C (98.4 F) 07/03/2025 9:54 AM CDT Respiratory Rate 16 07/03/2025 9:54 AM CDT Oxygen Saturation 99% 07/03/2025 9:54 AM CDT Inhaled Oxygen Concentration - - Weight 60 kg (132 lb 3.2 oz) 07/03/2025 9:54 AM CDT Height 167.6 cm (5' 6) 06/17/2025 1:17 PM CDT Body Mass Index 21.34 06/17/2025 1:17 PM CDT Plan of Treatment Upcoming Encounters Date Type Department Care Team (Late st Contact Info) Description 07/06/2025 1:30 PM CDT Appointment [facility] [address] [facility] [place] [address] 07/06/2025 3:00 PM CDT Education [facility] [address] [facility] [place] [address] 07/08/2025 8:45 AM CDT Appointment [facility] [address] [facility] [place] [address] 07/08/2025 9:45 AM CDT Office Visit [facility] [address] [facility] [place] [address] Nicol Calix, DIRECTOR TRANSLATIONAL [address] [facility] [place] [address] 07/08/2025 10:15 AM CDT Appointment [facility] [address] [facility] [place] [address] 07/15/2025 9:45 AM CDT Appointment [facility] [address] [facility] [place] [address] 07/15/2025 10:45 AM CDT Office Visit [facility] [address] [facility] [place] [address] Nicol Calix, DIRECTOR TRANSLATIONAL [address] [facility] [place] [address] 07/15/2025 11:15 AM CDT Appointment [address] [place] [address] 07/22/2025 8:45 AM CDT Appointment [address] [place] [address] 07/22/2025 9:15 AM CDT Appointment [address] [place] [address] Health Maintenance Due Date Last Done Comments Hepatitis C screening for age 18-79 1971 Mammogram for age 45-75 1998 Zoster (shingles) series for age 50+ (1 of 2) 10/07/2012 08/12/2012 DEXA/DXA scan for age 65+ 2018 Tetanus booster 09/11/2021 09/11/2011, 09/11/2011 Fecal testing non-DNA (FIT,FOBT,iFOBT) for age 45-75 01/03/2024 01/03/2023, 07/24/2015 COVID-19 vaccine series (6 - Moderna risk season) 2025 08/21/2024, 09/01/2022, 09/29/2021, Additional history exists Influenza Vaccine (#1) 2025 , 09/10/2023, 08/13/2020, Additional history exists Depression screening for age 12+ 01/05/2026 01/05/2025, 04/08/2021, 10/08/2018, Additional history exists Medicare Wellness for age 65+ 01/06/2026 01/05/[address] (for lung CA) age 50-80 05/27/2026 05/27/2025 BMI (ht and wt on same day) for age 18+ 06/10/2026 06/10/2025, 01/05/2025, 09/01/2022, Additional history exists Lipids for age 45-75 01/05/2030 01/05/2025, 01/26/2023, 04/11/2022, Additional history exists RSV vaccine for adults or Completed 08/01/2024 Pneumococcal series for age 50+ Completed 08/21/2024, 03/25/2019 Hepatitis B series for 19+ Aged Out N o longer eligible based on patient's age to complete this topic Medical Devices Implanted Type Area Oracle Database Developer Device Identifier Shelf Expiration Date Model / Serial / Lot Power Port Isp Mri 6fr [id number] - [id number] Implanted:Qty: 1 on 06/17/2025 by Valeria Elliott, at [facility] [employer] 03/25/2026 [id number] / / [id number] Procedures Procedure Name Priority Date/Time Associated Diagnosis Comments UA W/ SEDIMENT EXAM REFLEXED PER CRITERIA STAT 07/03/2025 12:00 AM CDT Dysuria RED CELL MORPHOLOGY STAT 06/30/2025 9 :19 AM CDT Adenocarcinoma of pancreas (HC) PLATELET ESTIMATE STAT 06/30/2025 9:1 9 AM CDT Adenocarcinoma of pancreas (HC) MANUAL DIFFERENTIAL STAT 06/30/2025 9 :19 AM CDT Adenocarcinoma of pancreas (HC) CBC WITH AUTO DIFFERENTIAL STAT 06/30/2025 9:19 AM CDT Adenocarcinoma of pancreas (HC) COMP METABOLIC PANEL STAT 06/30/2025 9:19 AM CDT Adenocarcinoma of pancreas (HC) CBC WITH AUTO DIFFERENTIAL STAT 06/30/2025 9:19 AM CDT Adenocarcinoma of pancreas (HC) UA W/ SEDIMENT EXAM REFLEXED PER CRITERIA Today 06/26/2025 1:36 PM CDT COMP METABOLIC PANEL STAT 06/25/2025 1:23 PM CDT ONCOLOGY ABSOLUTE NEUTROPHIL COUNT STAT 06/24/2025 7:50 AM CDT Adenocarcinoma of pancreas (HC) Other comptroller (current) drug therapy Encounter for screening for other viral diseases HBSAG (HBS) STAT 06/24/2025 7:50 AM CDT Adenocarcinoma of pancreas (HC) Other nursing home (current) drug therapy Encounter for screening for other viral diseases COMP METABOLIC PANEL STAT 06/24/2025 7:50 AM CDT Adenocarcinoma of pancreas (HC) Other nursing home (current) drug therapy Encounter for screening for other viral diseases ANTI HBC STAT 06/24/2025 7:50 AM CDT Adenocarcinoma of pancreas (HC) Other comptroller (current) drug therapy Encounter for screening for other viral diseases PET CT SKULL BASE TO MID THIGH INITIAL TREAT STAT 06/18/2025 9:00 AM CDT Adenocarcinoma of pancreas (HC) XR CHEST 1 VIEW PORTABLE STAT 06/17/2025 5:31 PM CDT XR CENTRAL VENOUS CATHETER FLUORO Routine 06/17/2025 5:29 PM CDT SUPRAGLOTTIC-LMA Routine 06/17/2025 4:17 PM CDT INSERTION POWER PORT 06/17/2025 3:50 PM CDT Pancreatic carcinoma (HC) BEDSIDE US STUDY ARCHIVE Routine 06/17/2025 1:07 PM CDT PANCREATIC ELASTASE FECAL Routine 06/11/2025 7:46 AM CDT Adenocarcinoma of pancreas (HC) PATH FNA CYTOLOGY ASP CYTOLOGY Today 06/02/2025 9:59 AM CDT FOCUS Timed 06/02/2025 9:59 AM CDT ENDOSCOPY 06/02/2025 9:38 AM CDT ENDOSCOPIC ULTRASOUND FINE NEEDLE ASPIRATE logistics coordinator 2: within 30 days 06/02/2025 9:30 AM CDT See note CT CHEST W [place] 05/27/2025 10:48 AM CDT Mass of pancreas (HC) CA 19-9 Routine 05/26/2025 11:26 AM CDT Mass of pancreas (HC) Malignant neoplasm of other parts of pancreas (HC) HEPATIC FUNCTION PANEL Routine 05/26/2025 11:26 AM CDT Mass of pancreas (HC) SCAN-ELECTROCARDIOGRA M EKG 05/25/2025 12:00 AM CDT SCAN-CT INTERPRETATION 05/25/2025 12:00 AM CDT SCAN-CT INTERPRETATION 05/25/2025 12:00 AM CDT US ABDOMEN LIMITED Routine 05/20/2025 9: 39 AM CDT Abdominal pain, RUQ (right upper quadrant) COMP METABOLIC PANEL Routine 05/18/2025 11:20 AM CDT Abdominal pain, RUQ (right upper quadrant) CBC WITH AUTO DIFFERENTIAL Routine 05/18/2025 11:20 AM CDT Abdominal pain, RUQ (right upper quadrant) LIPID PANEL W REFLEX MEASURED LDL Routine 01/05/2025 11:43 AM 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 COLOR DARK YELLOW YELLOW [facility] ( APPEARANCE CLEAR CLEAR [facility] ( SPECIFIC GRAVITY 1.020 1.001 - 1.035 [facility] ( PH 6.5 5.0 - 8.0 [facility] ( GLUCOSE NEGATIVE NEGATIVE [facility] ( BILIRUBIN 2+(A) NEGATIVE [facility] ( Comment: Presumptive positive bilirubin. Consider confirmation by serum bilirubin if clinically indicated. KETONES TRACE(A) NEGATIVE [facility] ( OCCULT BLOOD TRACE(A) NEGATIVE [facility] ( PROTEIN 1+(A) NEGATIVE [facility] ( NITRITE NEGATIVE NEGATIVE [facility] ( LEUKOCYTE ESTERASE TRACE(A) NEGATIVE [facility] ( WBC UA 0-5 < OR = 5 /HPF [facility] ( RBC UA 3-10(A) < OR = 2 /HPF [facility] ( SQUAMOUS EPITHELIAL CELLS UA 0-5 < OR = 5 /HPF [facility] ( BACTERIA UA FEW(A) NONE SEEN /HPF [facility] ( COMMENTS UA MODERATE MUCOUS THREADS [facility] ( NOTE UA [facility] ( Comment: This urine was analyzed for the presence of WBC, RBC, bacteria, casts, and other formed elements. Only those elements seen were reported. Urine URINE SPECIMEN / Unknown 07/03/2025 07/03/2025 11:12 AM CDT Srikanth Tolliver MD URINE Final Resul t [facility] [address] [place] [address], [facility] ( [address] [place] [address] * (ABNORMAL) CBC WITH AUTO DIFFERENTIAL (06/30/2025 9:19 AM CDT) WHITE BLOOD COUNT 17.1(H) 4.5 - 11.0 thou/cu mm 06/30/2025 9:53 AM T [facility] RED BLOOD COUNT 4.36 4.00 - 5.20 mil/cu mm 06/30/2025 9:[address] [facility] HEMOGLOBIN 12.8 12.0 - 16.0 g/dL 06/30/2025 9:[address] [facility] HEMATOCRIT 38.1 33.0 - 51.0 % 06/30/2025 9:[address] [facility] MCV 87 80 - 100 fL 06/30/2025 9:[address] [facility] MCH 29.4 26.0 - 34.0 pg 06/30/2025 9:[address] [facility] MCHC 33.6 32.0 - 36.0 g/dL 06/30/2025 9:[address] [facility] RDW 13.0 11.5 - 15.5 % 06/30/2025 9:[address] [facility] PLATELET COUNT 157 140 - 440 thou/cu mm 06/30/2025 9:53 AM CDT [facility] MPV 10.9 6.5 - 11.0 fL 06/30/2025 9:53 AM CDT [facility] Blood BLOOD SPECIMEN / Unknown Line/Port / Unknown 06/30/2025 9:19 AM CDT 06/30/2025 9:24 AM CDT Narrative [facility] - 06/30/2025 9:53 AM CDT Drawn from port; treatment pending. us Nicol Calix NP HEMATOLOGY Final Result Performing Organization Address City/[facility]/ZIP Co de Phone Number [facility] [address] [place] [address] * (ABNORMAL) RED CELL MORPHOLOGY (06/30/2025 9:19 AM CDT) Pathologist [facility] ELLIPTOCYTES Few 06/30/2025 9:53 AM CDT [facility] RBC COMMENT Present(A) RBC morphology appears normal, RBC morphology within normal limits for newborns. 06/30/2025 9:53 AM CDT [facility] LARGE PLATELETS Present 9:53 AM CDT [facility] WBC REACTIVE LYMPHS Present 06/30/2025 9:53 AM CDT [facility] Blood BLOOD SPECIMEN / Unknown Line/Port / Unknown 06/30/2025 9:19 AM CDT 06/30/2025 9:24 AM CDT Narrative [facility] - 06/30/2025 9:53 AM CDT Drawn from port; treatment pending. Nicol Calix NP HEMATOLOGY Final Result Performing Organization Address [facility]/ZIP Co de Phone Number [facility] [address] [place] [address] * (ABNORMAL) PLATELET ESTIMATE (06/30/2025 9:19 AM CDT) PLATELET ESTIMATE Platelets are clumped and appear adequate in number(A) Adequate, No estimate 06/30/2025 9:[address] [facility] Blood BLOOD SPECIMEN / Unknown Line/Port / Unknown 06/30/2025 9:19 AM CDT 06/30/2025 9:24 AM T [facility] - 06/30/2025 9:53 AM CDT Drawn from port; treatment pending. us Nicol Calix NP HEMATOLOGY Final Result [facility] [address] [place] [address] * (ABNORMAL) MANUAL DIFFERENTIAL (06/30/2025 9:19 AM CDT) % NEUTROPHILS 79.0 % 06/30/2025 9:[address] [facility] % LYMPHOCYTES 14.0 % 06/30/2025 9:[address] [facility] % MONOCYTES 6.0 % 06/30/2025 9:[address] [facility] % EOSINOPHILS 0.0 % 06/30/2025 9:[address] [facility] % BASOPHILS 1.0 % 06/30/2025 9:[address] [facility] NEUTROPHILS ABSOLUTE 13.5(H) 1.7 - 7.0 thou/cu mm 06/30/2025 9:[address] [facility] LYMPHOCYTES ABSOLUTE 2.4 0.9 - 2.9 thou/cu mm 06/30/2025 9:[address] [facility] MONOCYTES ABSOLUTE 1.0(H) <0.9 thou/cu mm 06/30/2025 9:[address] [facility] EOSINOPHILS ABSOLUTE 0.0 <0.5 thou/cu mm 06/30/2025 9:[address] [facility] BASOPHILS ABSOLUTE 0.2 <0.3 thou/cu mm 06/30/2025 9:[address] [facility] Blood BLOOD SPECIMEN / Unknown Line/Port / Unknown 06/30/2025 9:19 AM CDT 06/30/2025 9:24 AM CDT [facility] - 06/30/2025 9:53 AM CDT Drawn from port; treatment pending. us Nicol Calix NP HEMATOLOGY Final Result [facility] [address] [place] [address] * (ABNORMAL) COMP METABOLIC PANEL (06/30/2025 9:19 AM CDT) Only the most recent of4 resultswithin the time period is included. SODIUM 131(L) 136 - 145 mmol/L 06/30/2025 9:[address] [facility] POTASSIUM 3.1(L) 3.5 - 5.1 mmol/L 06/30/2025 9:[address] [facility] CHLORIDE 94(L) 98 - 107 mmol/L 06/30/2025 9:[address] [facility] CO2,TOTAL 24 22 - 29 mmol/L 06/30/2025 9:[address] [facility] ANION GAP 13 5 - 18 06/30/2025 9:[address] [facility] GLUCOSE 99 70 - 99 mg/dL 06/30/2025 9:[address] [facility] CALCIUM 9.0 8.8 - 10.4 mg/dL 06/30/2025 9:[address] [facility] Comment: Reference ranges for this test were updated on 09/30/2024 to reflect our healthy population more accurately. Reference range changes are not retroactively applied to results, but previous results using the same methodology can be interpreted in the context of the new reference range. BUN 25(H) 8 - 23 mg/dL 06/30/2025 9:[address] [facility] CREATININE 0.93(H) 0.50 - 0.90 mg/dL 06/30/2025 9:[address] [facility] BUN/CREAT RATIO 27(H) 10 - 20 9:[address] [facility] eGFR 66(L) >90 mL/min/1. 73m2 06/30/2025 9:[address] [facility] Comment:As of 2022, eG FR is calculated by the CKD-EPI creatinine equation without race adjustment. eGFR can be influenced by muscle mass, exercise, and diet. The reported eGFR is an estimation only and is only applicable if the renal function is stable. ALBUMIN 4.0 4.0 - 4.9 g/dL 06/30/2025 9:[address] [facility] PROTEIN,TOTAL 6.3 6.0 - 8.0 g/dL 06/30/2025 9:[address] [facility] BILIRUBIN,TOTAL 0.7 0.0 - 1.2 mg/dL 06/30/2025 9:[address] [facility] ALK PHOSPHATASE 118(H) 35 - 104 IU/L 06/30/2025 9:[address] [facility] ALT (SGPT) 33 10 - 35 IU/L 06/30/2025 9:[address] [facility] AST (SGOT) 27 10 - 35 IU/L 06/30/2025 9:[address] [facility] Blood BLOOD SPECIMEN / Unknown Line/Port / Unknown 06/30/2025 9:19 AM CDT 06/30/2025 9:24 AM CDT us Nicol Calix NP CHEMISTRY Final Result Performing Organization Address City/[facility] Co de Phone Number [facility] [address] [place] [address] * (ABNORMAL) ONCOLOGY ABSOLUTE NEUTROPHIL COUNT (06/24/2025 7:50 AM CDT) WHITE BLOOD COUNT 10.5 4.5 - 11.0 thou/cu mm 06/24/2025 7:[address] [facility] RED BLOOD COUNT 4.54 4.00 - 5.20 mil/cu mm 06/24/2025 7:[address] [facility] HEMOGLOBIN 13.4 12.0 - 16.0 g/dL 06/24/2025 7:[address] [facility] HEMATOCRIT 39.5 33.0 - 51.0 % 06/24/2025 7:[address] [facility] MCV 87 80 - 100 fL 06/24/2025 7:[address] [facility] MCH 29.5 26.0 - 34.0 pg 06/24/2025 7:[address] [facility] MCHC 33.9 32.0 - 36.0 g/dL 06/24/2025 7:[address] [facility] RDW 13.5 11.5 - 15.5 % 06/24/2025 7:[address] [facility] PLATELET COUNT 228 140 - 440 thou/cu mm 06/24/2025 7:[address] [facility] MPV 10.5 6.5 - 11.0 fL 06/24/2025 7:[address] [facility] % NEUT 76.1 % 06/24/2025 7:[address] [facility] % LYMPH 11.1 % 06/24/2025 7:[address] [facility] % MONO 10.2 % 06/24/2025 7:[address] [facility] % EOS 1.7 % 06/24/2025 7:[address] [facility] % BASO 0.9 % 06/24/2025 7:[address] [facility] ONCOLOGY ABSOLUTE NEUTROPHILS 8.0(H) 1.7 - 7.0 thou/cu mm 06/24/2025 7:[address] [facility] ABSOLUTE LYMPHOCYTES 1.2 0.9 - 2.9 thou/cu mm 06/24/2025 7:[address] [facility] ABSOLUTE MONOCYTES 1.1(H) <0.9 thou/cu mm 06/24/2025 7:[address] [facility] ABSOLUTE EOSINOPHILS 0.2 <0.5 thou/cu mm 06/24/2025 7:[address] [facility] ABSOLUTE BASOPHILS 0.1 <0.3 thou/cu mm 06/24/2025 7:58 AM CDT [facility] NRBC 06/24/2025 7:58 AM CDT [facility] ABS NRBC 06/24/2025 7:58 AM CDT [facility] Blood BLOOD SPECIMEN / Unknown Line/Port / Unknown 06/24/2025 7:50 AM CDT 06/24/2025 7:54 AM CDT Narrative [facility] - 06/24/2025 7:58 AM CDT Includes CBC and differential. Drawn from port; treatment pending. us Nicol Calix NP HEMATOLOGY Final Result Performing Organization Address City/[facility]/ZIP Co de Phone Number [facility] [address] [place] [address] * HBSAG (HBS) (06/24/2025 7:50 AM CDT) HBSAG Nonreactive Nonreactive 06/24/2025 1:56 PM CDT [facility] Blood BLOOD SPECIMEN / Unknown Line/Port / Unknown 06/24/2025 7:50 AM CDT 06/24/2025 7:54 AM CDT us Nicol Calix NP SEND OUTS Final Result Performing Organization Address City/[facility]/ZIP Co de Phone Number [facility] [address] [place] [address], [place] * ANTI HBC (06/24/2025 7:50 AM CDT) ANTI HBC Non-React tyron Non-React tyron 06/24/2025 1:56 PM CDT [facility] Comment:Anti-HBc Antibodies not detected. Does not exclude the possibility of exposure to or infection with HBV. Levels of Anti-HBc may be below the cut-off in early infection. Blood BLOOD SPECIMEN / Unknown Line/Port / Unknown 06/24/2025 7:50 AM CDT 06/24/2025 7:54 AM CDT us Nicol Calix NP SEND OUTS Final Result [facility] [address] [place] [address], * PET CT SKULL BASE TO MID THIGH INITIAL TREAT (06/18/2025 9:00 AM CDT) Anatomical Region Laterality Modality Positron Emissio n Tomography (PET) 06/18/2025 2:37 PM CDT Impressions 06/18/2025 2:37 PM CDT 1. Avid ill-defined pancreatic body mass with moderate uptake is consistent with biopsy-proven pancreatic malignancy. There is extension of soft tissue stranding and uptake from the posterior pancreatic body along the margins of the celiac trunk and left side of the SMA. 2. Small avid peripancreatic lymph nodes in the upper abdomen are suspicious. No enlarged or hypermetabolic low thoracic, lower retroperitoneal or pelvic lymphadenopathy . 3. No hypermetabolic lung nodules or suspicious pulmonary uptake. Bibasilar reticular opacities with curvilinear uptake could be related to scarring/fibrosis, atelectasis or reactive/inflammatory. 4. Areas of uptake within the mid and distal small bowel, distal descending and portions of the sigmoid colon demonstrate no obvious noncontrast CT abnormality. Possibly reactive/inflammatory or physiologic. Colonic diverticulosis with no CT findings of diverticulitis. 5. No abnormal uptake in the soft tissues of the neck, liver or osseous structures. 6. Other nonacute findings as detailed in the body of the report. Dictated by Sandeep Contreras MD @ 06/18/2025 2:37:31 PM (Electronically Signed) Narrative 06/18/2025 2:37 PM CDT For Patients: As a result of the 21st Century Cures Act, medical imaging exams and procedure reports are released immediately into your electronic medical record. You may view this report before your referring provider. If you have questions, please contact your health care provider. EXAM: PET-CT SKULL BASE TO THIGH CLINICAL INFORMATION: 69-yo Female with newly diagnosed pancreatic cancer. Patient is referred for further characterization. TECHNIQUE: Radiopharmaceutical: 10.8 mCi of 18F-FDG Intravenous injection site: Port Uptake time: 57 minutes Blood glucose level at the time of injection: 111 mg/dL Field of view: Skull base to mid-thighs CT protocol: The low-dose, free-breathing, noncontrast CT performed as part of this study is designed for the purposes of attenuation correction and lesion localization, and it is neither sufficient, nor it should be substituted for diagnostic purposes. COMPARISON: CT chest 05/27/2025. CT abdomen pelvis 05/25/2025 FINDINGS: Physiologic background liver standardized uptake value (SUV mean and SUV max) reported for comparison between PET studies: 3.1 and 3.6. Visualized head and neck: No abnormal uptake or mass-effect in the visualized brain or posterior fossa. Bilateral carotid vascular calcifications. Head and neck lymph nodes: No enlarged or hypermetabolic cervical chain lymph nodes. Lungs: Respiratory motion artifact. Diffuse upper lobe predominant emphysematous changes and biapical scarring. No hypermetabolic lung nodules or abnormal pulmonary uptake. Curvilinear reticular opacities in the periphery of the lower lobes with variable uptake considered nonspecific, possibly reactive/inflammatory, secondary to atelectasis or bibasilar scarring/fibrosis. Thoracic lymph nodes: No hypermetabolic hilar or axillary lymphadenopathy. Similar precaval lymph node, 0.7 cm short axis, SUV max 2.3. Comparison CT chest, 0.9 cm short axis (series 3, image 55). Other chest findings: Left chest port with central catheter tip position in the right atrium. Numerous air densities in the soft tissues overlying the catheter hub without adjacent inflammatory change or uptake. Likely related to postprocedural changes/recent placement diffuse thoracic aortic calcifications. Hepatobiliary: Bilobar hypodense cystic lesions in the liver demonstrate no abnormal uptake. Larger lesions are photopenic on PET images and likely cysts. Smaller lesions difficult to fully characterize. Otherwise, no suspicious tracer avid liver lesions. Spleen: No abnormal uptake. No splenomegaly. Adrenal glands: No abnormal right adrenal uptake. Low-density nodular thickening left adrenal gland without uptake. Pancreas: Avid ill-defined mass in the body of the pancreas demonstrates moderate uptake, approximately 3.6 x 1.7 cm, SUV max 6.8 (fused image 159). There is extension of soft tissue stranding and uptake from the posterior pancreatic body on both sides of the celiac trunk, SUV max 4.3 (fused image 158 in the left side of the SMA (fused image 161). There is atrophy of the distal tail of pancreas Kidneys and bladder: No obstruction or abnormal uptake. Rounded low-density left renal lesion without uptake, likely a cyst. Partially distended bladder. Bowel and peritoneum: Limited gastric distention. Areas of uptake within decompressed portions of the vena distal small bowel demonstrate no gross abnormality on noncontrast CT uptake in the distal descending and portions sigmoid colon again with no noncontrast CT abnormality. Diffuse diverticulosis in the distal descending and sigmoid colon with no CT findings of diverticulitis. Pelvic organs: No abnormal uptake. Abdominopelvic lymph nodes: Avid peripancreatic lymph nodes are suspicious. For example: Left paramidline peripancreatic lymph node, 0.6 cm short axis, SUV max 4.2 (fused image 155). Smaller less avid lower retroperitoneal, pelvic and inguinal lymph nodes are nonspecific, probably reactive/inflammatory. Musculoskeletal, soft tissues, skin: No aggressive, lytic or expansile osseous lesions with uptake. Degenerative type uptake within the spine with a mild thoracolumbar scoliotic curvature. Other: Diffuse aortoiliac vascular calcifications. Procedure Note Sandeep Contreras, DO - 06/18/2025 For Patients: As a result of the Century Cures Act, medical imagingexams and procedure reports are released immediately into your electronicmedical record. You may view this report before your referring provider.If you have questions, please contact your health care provider. EXAM: PET-CT SKULL BASE TO THIGH CLINICAL INFORMATION: 69-yo Female with newly diagnosed pancreatic cancer. Patient is referredfor further characterization. TECHNIQUE: Radiopharmaceutical: 10.8 mCi of 18F-FDG Intravenous injection site: Port Uptake time: 57 minutes Blood glucose level at the time of injection: 111 mg/dL Field of view: Skull base to mid-thighs CT protocol: The low-dose, free-breathing, noncontrast CT performed aspart of this study is designed for the purposes of attenuation correctionand lesion localization, and it is neither sufficient, nor it should besubstituted for diagnostic purposes. COMPARISON: CT chest 05/27/2025. CT abdomen pelvis 05/25/2025 FINDINGS: Physiologic background liver standardized uptake value (SUV mean and SUVmax) reported for comparison between PET studies: 3.1 and 3.6. Visualized head and neck: No abnormal uptake or mass-effect in thevisualized brain or posterior fossa. Bilateral carotid vascularcalcifications. Head and neck lymph nodes: No enlarged or hypermetabolic cervical chainlymph nodes. Lungs: Respiratory motion artifact. Diffuse upper lobe predominantemphysematous changes and biapical scarring. No hypermetabolic lungnodules or abnormal pulmonary uptake. Curvilinear reticular opacities inthe periphery of the lower lobes with variable uptake considerednonspecific, possibly reactive/inflammatory, secondary to atelectasis orbibasilar scarring/fibrosis. Thoracic lymph nodes: No hypermetabolic hilar or axillary lymphadenopathy.Similar precaval lymph node, 0.7 cm short axis, SUV max 2.3. Comparison CTchest, 0.9 cm short axis (series 3, image 55). Other chest findings: Left chest port with central catheter tip positionin the right atrium. Numerous air densities in the soft tissues overlyingthe catheter hub without adjacent inflammatory change or uptake. Likelyrelated to postprocedural changes/recent placement diffuse thoracic aorticcalcifications. Hepatobiliary: Bilobar hypodense cystic lesions in the liver demonstrateno abnormal uptake. Larger lesions are photopenic on PET images and likelycysts. Smaller lesions difficult to fully characterize. Otherwise, nosuspicious tracer avid liver lesions. Spleen: No abnormal uptake. No splenomegaly. Adrenal glands: No abnormal right adrenal uptake. Low-density nodularthickening left adrenal gland without uptake. Pancreas: Avid ill-defined mass in the body of the pancreas demonstratesmoderate uptake, approximately 3.6 x 1.7 cm, SUV max 6.8 (fused ). There is extension of soft tissue stranding and uptake from theposterior pancreatic body on both sides of the celiac trunk, SUV max 4.3(fused image 158 in the left side of the SMA (fused image 161). There isatrophy of the distal tail of pancreas Kidneys and bladder: No obstruction or abnormal uptake. Roundedlow-density left renal lesion without uptake, likely a cyst. Partiallydistended bladder. Bowel and peritoneum: Limited gastric distention. Areas of uptake withindecompressed portions of the vena distal small bowel demonstrate no grossabnormality on noncontrast CT uptake in the distal descending and portionssigmoid colon again with no noncontrast CT abnormality. Diffusediverticulosis in the distal descending and sigmoid colon with no CTfindings of diverticulitis. Pelvic organs: No abnormal uptake. Abdominopelvic lymph nodes: Avid peripancreatic lymph nodes aresuspicious. For example: Left paramidline peripancreatic lymph node, 0.6cm short axis, SUV max 4.2 (fused image 155). Smaller less avid lowerretroperitoneal, pelvic and inguinal lymph nodes are nonspecific, probablyreactive/inflammatory. Musculoskeletal, soft tissues, skin: No aggressive, lytic or expansileosseous lesions with uptake. Degenerative type uptake within the spinewith a mild thoracolumbar scoliotic curvature. Other: Diffuse aortoiliac vascular calcifications. IMPRESSION: 1. Avid ill-defined pancreatic body mass with moderate uptake isconsistent with biopsy-proven pancreatic malignancy. There is extension ofsoft tissue stranding and uptake from the posterior pancreatic body alongthe margins of the celiac trunk and left side of the SMA. 2. Small avid peripancreatic lymph nodes in the upper abdomen aresuspicious. No enlarged or hypermetabolic low thoracic, lowerretroperitoneal or pelvic lymphadenopathy . 3. No hypermetabolic lung nodules or suspicious pulmonary uptake.Bibasilar reticular opacities with curvilinear uptake could be related toscarring/fibrosis, atelectasis or reactive/inflammatory. 4. Areas of uptake within the mid and distal small bowel, distaldescending and portions of the sigmoid colon demonstrate no obviousnoncontrast CT abnormality. Possibly reactive/inflammatory or physiologic.Colonic diverticulosis with no CT findings of diverticulitis. 5. No abnormal uptake in the soft tissues of the neck, liver or osseousstructures. 6. Other nonacute findings as detailed in the body of the report. Dictated by Sandeep Contreras MD @ 06/18/2025 2:37:31 PM (Electronically Signed) us Srikanth Tolliver MD PET Final Resul t * XR CHEST 1 VIEW PORTABLE (06/17/2025 5:31 PM CDT) Anatomical Region Laterality Modality HEART, THORAX, CHEST Digital Rad iography 06/17/2025 5:42 PM CDT Narrative 06/17/2025 5:42 PM CDT For Patients: As a result of the Century Cures Act, medical imaging exams and procedure reports are released immediately into your electronic medical record. You may view this report before your referring provider. If you have questions, please contact your health care provider. Indication: Port placement. Technique: Frontal chest radiograph. Comparison: Chest CT from 05/27/2025. Findings: Interval placement of a Mediport with catheter tip terminating within the region of the SVC. Lungs are clear. No consolidation, effusion or pneumothorax. Cardiomediastinal silhouette is within normal limits. No significant osseous or soft tissue findings. Impression: 1. Interval placement of a Mediport with catheter tip terminating within the region of the SVC. Dictated by Rolando Carmen MD @ 06/17/2025 5:42:18 PM (Electronically Signed) Procedure Note Rolando Carmen MD - 06/17/2025 For Patients: As a result of the Cures Act, medical imagingexams and procedure reports are released immediately into your electronicmedical record. You may view this report before your referring provider.If you have questions, please contact your health care provider. Indication: Port placement. Technique: Frontal chest radiograph. Comparison: Chest CT from 05/27/2025. Findings: Interval placement of a Mediport with catheter tip terminating within theregion of the SVC. Lungs are clear. No consolidation, effusion or pneumothorax.Cardiomediastinal silhouette is within normal limits. No significantosseous or soft tissue findings. Impression: 1. Interval placement of a Mediport with catheter tip terminating withinthe region of the SVC. Dictated by Rolando Carmen MD @ 06/17/2025 5:42:18 PM (Electronically Signed) Valeria Elliott DO GENERAL IMAGING Final Res ult * XR CENTRAL VENOUS CATHETER FLUORO (06/17/2025 5:29 PM CDT) Anatomical Region Laterality Modality CHEST, HEART X-Ray Angiograph y 06/22/2025 6:48 AM CDT Narrative 06/22/2025 6:48 AM CDT For Patients: As a result of the Cures Act, medical imaging exams and procedure reports are released immediately into your electronic medical record. You may view this report before your referring provider. If you have questions, please contact your health care provider. INDICATION: Power port insertion. TECHNIQUE: C-arm fluoro time. FINDINGS: Fluoroscopy time 11 seconds. Two images. Power port tip lies in the superior vena cava. No chest x-ray included with the study. Dictated by Lizzy Harmon MD @ 06/22/2025 6:48:54 AM (Electronically Signed) Procedure Note Srikanth Harmon MD - 06/22/2025 For Patients: As a result of the Century Cures Act, medical imagingexams and procedure reports are released immediately into your electronicmedical record. You may view this report before your referring provider.If you have questions, please contact your health care provider. INDICATION: Power port insertion. TECHNIQUE: C-arm fluoro time. FINDINGS: Fluoroscopy time 11 seconds. Two images. Power port tip lies in thesuperior vena cava. No chest x-ray included with the study. Dictated by Lizzy Harmon MD @ 06/22/2025 6:48:54 AM (Electronically Signed) Valeria Elliott DO FLUOROSCOPY Final Res ult * Supraglottic (06/17/2025 4:17 PM CDT) Narrative Elvin Echols CRNA - 06/17/2025 4:17 PM CDT Elvin Echols CRNA 06/17/2025 4:17 PM Procedure: Supraglottic Patient location during procedure: OR Supraglottic Airway Properties Mask Ventilation: not attempted Type: i-gel Tube Size: 4 Insertion Attempts: 1 Placement Verification: auscultation and CO2 detection Assessment Assessment: atraumatic and dentition unchanged Elvin Echols CRNA ANESTHESIA PX NOTE ORD ERABLES Final Result * PANCREATIC ELASTASE FECAL (06/11/2025 7:46 AM CDT) PANCREATIC ELASTASE 1 502 >200 mcg/g [facility], Comment: E-1 mcg/g feces Interpretation <100 Severe exocrine pancreatic insufficiency 100-200 Mild to moderate exocrine pancreatic insufficiency >200 Normal Stool STOOL SPECIMEN / Unknown 06/11/2025 7:46 AM CDT 06/11/2025 7:46 AM CDT Srikanth Tolliver MD MICROBIOLOGY Final Resul t [facility] [address] [place] [address], [facility], [address] [place] [address] * FOCUS (06/02/2025 9:59 AM CDT) Aspirate (Pancreas Body) 06/02/2025 9:59 AM CDT 06/03/2025 9:10 AM CDT Dave Kc MD LABORATORY Final Result [facility] [address] [place] [address], * PATH FNA CYTOLOGY ASP CYTOLOGY (06/02/2025 9:59 AM CDT) Case Report Medical Cytology Report Case: [id number] Authorizing Provider: Dave Kc, Collected: 06/02/2025 0959 Ordering Location: [facility] Received: 06/02/[address] [place] [address] Pathologist: Ciro Vicente Jr., MD Specimens: A) - Pancreas Body, Pancrease Body Mass FNA B) - Lymph Node, Other, Para-Aortic lymp node 5 5:07 PM CDT [facility]AL [facility] Amendment 06/10/2025 - Amendmen t to report [facility]. Please see attached scanned report and updated diagnosis. 5 5:07 PM CDT [facility]- CENTRAL [facility]AT[facility] Final Diagnosis A) PANCREAS, BODY/TAIL, EUS GUIDED FINE NEEDLE ASPIRATION: 1. Positive for malignancy; adenocarcinoma, compatible with pancreatic primary (see comment) 2. Ancillary studies: a. DNA mismatch enzyme immunohistochemistry: Intact b. 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 Stearns (part A only). PANCREAS ANCILLARY TESTING PROTOCOL This patient's sample meets [facility] criteria* for reflex testing, or such testing has been requested by the ordering physician. Testing will be performed and the results will be communicated in an amendment to this report. If there is a need for ancillary tests other than these, please contact the [facility] ([phone]). Slides available for [facility] NGS testing: A1-2 (borderline) Blocks available for [facility] NGS testing: A2 Blocks available for tests using immunostains and/or FISH (requiring 100 cells): A2 Blocks available for send out (outside vendor) testing requiring 5 x 5 mm of tumor: Quantity not sufficient *[facility] reflex testing criteria for pancreatic carcinoma - At diagnosis or if not previously performed: Mismatch repair enzyme immunohistochemistry, KRAS testing by NGS (may omit KRAS if large sendout NGS panel planned using sufficient tissue or if definite acinar cell or neuroendocrine carcinoma histology) 5 5:07 PM CDT [facility] Clinical Information Ms. Schmid is a 69 y.o. female with a 3 cm infiltrative pancreas body/tail mass and adjacent retroperitoneal lymphadenopathy 5 5:07 PM CDT [facility] Gross Description A) Received identified as Pancreas body, is a fine needle aspirate specimen. The specimen consists of: -3 Air dried slides -1 CytoLyt vial -0 RPMI vials -1 Formalin vial The following were prepared from the specimen submitted: -3 Diff-Quik stained slides -1 Papanicolaou stained ThinPrep slide -1 H&E stained cell block slide A2 Cell block material was removed from the patient and placed directly in formalin at 1015 on 06/02/25 and fixed in formalin at least 6 hours and no more than 72 hours. B) Received identified as Para-Aortic lymph node, is a fine needle aspirate specimen. The specimen consists of: -5 Air dried slides -1 CytoLyt vial -0 RPMI vials -1 Formalin vial The following were prepared from the specimen submitted: -5 Diff-Quik stained slides -1 Papanicolaou stained ThinPrep slide -1 H&E stained cell block slide B2 Cell block material was removed from the patient and placed directly in formalin at 1035 on 06/02/25 and fixed in formalin at least 6 hours and no more than 72 hours. 5:07 PM T [facility] Adequacy Assessment A&B) Linda assessed adequacy from the air-dried smears at the time of the procedure with an impression of Adequate. 5:07 PM [facility] Microscopic Description Specimen adequacy: Adequate for interpretation. All slides were reviewed. The microscopic appearance substantiates the diagnosis. DNA mismatch repair immunohistochemistry is performed for consideration of immune checkpoint inhibitor therapy. Immunohistochemistry is interpreted with the following results: DNA MMR immunohistochemical labeling profile: MLH1: Positive PMS2: Positive MSH2: Positive MSH6: Positive DNA MMR enzyme immunohistochemistry reviewed by Dr. Vicente. 5:07 PM T [facility] Molecular Diagnostics Summary Preanalytical microdissection of tissue/cytology slides for Next Generation Sequencing was performed according to laboratory protocol as follows: Microscopic examination was performed by a pathologist, Dr. Vicente, to determine specimen adequacy and identify areas of tumor for isolation. Areas of tumor selected and marked by the pathologist were manually harvested by a school laboratory technician for nucleic acid extraction. 5:07 PM T [facility] Additional Information Cytology is screened at [facility] - [address], [place] [address] and [facility] - [address] [place] [address] [address] [facility] - [address] [place] [address] Interpreted at [facility] - [address], [place] [address] Immunohistochemistry controls were reviewed and approved as appropriate by the pathologist during this examination. 5:07 PM CDT [facility]- [facility]ENTRAL LABORATORY Aspirate (Pancreas Body) 06/02/2025 9:59 AM CDT 06/02/2025 10:59 AM CDT Specimen obtained by aspiration (specimen) (Lymph Node, Other) 06/02/2025 10:19 AM CDT 06/02/2025 10:59 AM CDT Dave Kc MD PATHOLOGY/CYTOLOGY Deejay shawn Result - Final [facility] [address] [place] [address], [place] * ENDOSCOPY (06/02/2025 9:38 AM CDT) 06/02/2025 9:38 AM CDT Narrative Transcriptions Dave Kc MD - 06/02/2025 10:53 AM CDT [facility] Patient Name: Dread Schmid Procedure Date: 06/02/2025 Gender: Female Date of : 1955 Admit Type: Ambulatory Procedure: Upper EUS Proceduralist: Dave Kc MD - [facility] Referring MD: Dave Kc MD Indications/Pre-Op Diagnosis: Suspected mass in pancreas on CT scan Medications: Monitored Anesthesia Care Procedure Description: Risk of bleeding, infection, perforation, pancreatitis, need for surgery, remote chance of and alternatives were discussed, andthe patient gave informed consent. The endoscope [id number] was introduced through the mouth, and advanced to the third part of duodenum. The upper EUS wasaccomplished without difficulty. The patient tolerated the procedure well. Complications: No immediate complications. Estimated Blood Loss & Specimen: Estimated blood loss: none. Specimen collected: Yes and sent to Laboratory Findings: ENDOSCOPIC FINDING: : The entire examined stomach was normal. The examined duodenum was normal. ENDOSONOGRAPHIC FINDING: : There was no sign of significant endosonographic abnormality in the ampulla. No masses were identified. There was no sign of significant endosonographic abnormality in the common bile duct. The maximum diameter of the duct was 5 mm. Nostones, no biliary sludge, ducts of normal caliber and ducts with regular contour were identified. There was no sign of significant endosonographic abnormality in theleft lobe of the liver and in the right lobe of the liver. No focalpathology was identified. An irregular mass was identified in the pancreatic body. The mass was hypoechoic. The mass measured 28 mm by 16 mm in maximalcross-sectional diameter. The outer margins were irregular. An intact interface wasseen between the mass and the superior mesenteric artery, celiac trunk and portal vein suggesting a lack of invasion. Fine needle aspiration for cytology was performed. Color Doppler imaging was utilized prior to needle puncture to confirm a lack of significant vascular structures within the needle path. Four passes were made with the 25 gaugeneedle using a transgastric approach. A research assistant member was present and performeda preliminary cytologic examination. The cellularity of the specimenwas adequate. Final cytology results are pending. There was no sign of significant endosonographic abnormality in the pancreatic head. The pancreatic duct measured up to 3 mm in diameter.No masses, no cysts. Two malignant-appearing lymph nodes were visualized in the upper-abdominal periaortic region. The largest measured 8 mm inmaximal cross-sectional diameter. The nodes were irregular, hypoechoic andhad well defined margins. Fine needle aspiration for cytology wasperformed. Color Doppler imaging was utilized prior to needle puncture toconfirm a lack of significant vascular structures within the needle path. Four passes were made with the 25 gauge needle. A research assistant member was presentand performed a preliminary cytologic examination. The cellularity of the specimen was adequate. Final cytology results are pending. The aortopulmonary region (level 5), subcarinal mediastinum (level 7) and celiac region (level 20) nodes were endosonographically normal.No pathologic lymphadenopathy was identified. Impressions/Post-Op Diagnosis: - There was no evidence of significant pathology in the left lobe ofthe liver and in the right lobe of the liver. - A mass was identified in the pancreatic body. Tissue was obtainedfrom this exam, and results are pending. However, the endosonographic appearance is consistent with adenocarcinoma. This was staged T3 N1Mx by endosonographic criteria. The staging applies if malignancy is confirmed. Fine needle aspiration performed. - Two malignant-appearing lymph nodes were visualized in the upper-abdominal periaortic region. Tissue was obtained from thisexam, and results are pending. However, the endosonographic appearance is consistent with metastatic pancreatic adenocarcinoma. Fine needle aspiration performed. Recommendation: - Await cytology results. - Refer to an oncologist. Dave Kc MD 06/02/2025 10:53:04 AM This report has been signed electronically. Note Initiated On: 06/02/2025 9:38 AM Dave Kc MD PROCEDURE ORD Final Result * CT CHEST W (05/27/2025 10:48 AM CDT) Anatomical Region Laterality Modality CHEST, THORAX, HEART Computed To mography 05/27/2025 3:41 PM CDT Addenda Addendum by Cristóbal Larry MD on 05/27/2025 7:39 PM CDT Indication: Pancreatic mass Technique: Postcontrast CT chest. 70 cc Omnipaque 350 intravenous contrast administered. Please note that all CT scans at this facility use dose modulation, iterative reconstruction, and/or weight-based dosing when appropriate to reduce radiation dose to as low as reasonably achievable. Comparison: Right upper quadrant ultrasound 05/20/2025 Findings: Infiltrative ill-defined pancreatic body mass is present measuring approximately 3 cm. Numerous adjacent lymph nodes are present. Thickening of the adrenal glands. Simple water attenuation left renal cyst measures 2.3 cm. Multiple intrahepatic cysts again noted measuring up to 3.4 cm. Vicarious excretion of contrast into the gallbladder noted. The spleen is not enlarged. Extensive atherosclerotic changes. Ectatic aorta. No aneurysm or dissection. No pulmonary embolism. Prominent lymph nodes in the mediastinum measure up to 1.1 cm in the precarinal space. Visualized thyroid normal. Emphysema. No suspicious pulmonary nodule. Dependent areas of atelectasis in both lower lobes. No vertebral body compression fracture. Impression: Ill-defined infiltrative pancreatic body/tail mass measuring approximately 3 cm with adjacent retroperitoneal adenopathy. Dedicated CT or MRI of the pancreas recommended for further evaluation. Dependent bibasilar atelectasis. No suspicious pulmonary nodule. Mildly prominent precarinal lymph nodes in the mediastinum. Emphysema. Multiple intrahepatic cysts and left renal cyst. Please note that all CT scans at this facility use dose modulation, iterative reconstruction, and/or weight-based dosing when appropriate to reduce radiation dose to as low as reasonably achievable. Dictated by Cristóbal Larry MD @ May 27 2025 3:41PM (Electronically Signed) Addendum by Cristóbal Larry MD on 05/27/2025 7:39 PM CDT Indication: Pancreatic mass Technique: Postcontrast CT chest. 70 cc Omnipaque 350 intravenous contrast administered. Please note that all CT scans at this facility use dose modulation, iterative reconstruction, and/or weight-based dosing when appropriate to reduce radiation dose to as low as reasonably achievable. Comparison: Right upper quadrant ultrasound 05/20/2025 Findings: Infiltrative ill-defined pancreatic body mass is present measuring approximately 3 cm. Numerous adjacent lymph nodes are present. Thickening of the adrenal glands. Simple water attenuation left renal cyst measures 2.3 cm. Multiple intrahepatic cysts again noted measuring up to 3.4 cm. Vicarious excretion of contrast into the gallbladder noted. The spleen is not enlarged. Extensive atherosclerotic changes. Ectatic aorta. No aneurysm or dissection. No pulmonary embolism. Prominent lymph nodes in the mediastinum measure up to 1.1 cm in the precarinal space. Visualized thyroid normal. Emphysema. No suspicious pulmonary nodule. Dependent areas of atelectasis in both lower lobes. No vertebral body compression fracture. Impression: Ill-defined infiltrative pancreatic body/tail mass measuring approximately 3 cm with adjacent retroperitoneal adenopathy. Dedicated CT or MRI of the pancreas recommended for further evaluation. Dependent bibasilar atelectasis. No suspicious pulmonary nodule. Mildly prominent precarinal lymph nodes in the mediastinum. Emphysema. Multiple intrahepatic cysts and left renal cyst. Please note that all CT scans at this facility use dose modulation, iterative reconstruction, and/or weight-based dosing when appropriate to reduce radiation dose to as low as reasonably achievable. Dictated by Cristóbal Larry MD @ May 27 2025 3:41PM (Electronically Signed) Narrative 05/27/2025 3:41 PM CDT For Patients: As a result of the [employer] Cures Act, medical imaging exams and procedure reports are released immediately into your electronic medical record. You may view this report before your referring provider. If you have questions, please contact your health care provider. Indication: Pancreatic mass Technique: Postcontrast CT chest. 70 cc Omnipaque 350 intravenous contrast administered. Please note that all CT scans at this facility use dose modulation, iterative reconstruction, and/or weight-based dosing when appropriate to reduce radiation dose to as low as reasonably achievable. Comparison: Right upper quadrant ultrasound 05/20/2025 Findings: Infiltrative ill-defined pancreatic body mass is present measuring approximately 3 cm. Numerous adjacent lymph nodes are present. Thickening of the adrenal glands. Simple water attenuation left renal cyst measures 2.3 cm. Multiple intrahepatic cysts again noted measuring up to 3.4 cm. Vicarious excretion of contrast into the gallbladder noted. The spleen is not enlarged. Extensive atherosclerotic changes. Ectatic aorta. No aneurysm or dissection. No pulmonary embolism. Prominent lymph nodes in the mediastinum measure up to 1.1 cm in the precarinal space. Visualized thyroid normal. Emphysema. No suspicious pulmonary nodule. Dependent areas of atelectasis in both lower lobes. No vertebral body compression fracture. Impression: Ill-defined infiltrative pancreatic body/tail mass measuring approximately 3 cm with adjacent retroperitoneal adenopathy. Dedicated CT or MRI of the pancreas recommended for further evaluation. Dependent bibasilar atelectasis. No suspicious pulmonary nodule. Mildly prominent precarinal lymph nodes in the mediastinum. Emphysema. Multiple intrahepatic cysts and left renal cyst. Please note that all CT scans at this facility use dose modulation, iterative reconstruction, and/or weight-based dosing when appropriate to reduce radiation dose to as low as reasonably achievable. Dictated by Cristóbal Larry MD @ 05/27/2025 3:41:59 PM (Electronically Signed) Procedure Note Cristóbal Larry MD - 05/27/2025 For Patients: As a result of the [employer] Cures Act, medical imagingexams and procedure reports are released immediately into your electronicmedical record. You may view this report before your referring provider.If you have questions, please contact your health care provider. Indication: Pancreatic mass Technique: Postcontrast CT chest. 70 cc Omnipaque 350 intravenous contrastadministered. Please note that all CT scans at this facility use dose modulation,iterative reconstruction, and/or weight-based dosing when appropriate toreduce radiation dose to as low as reasonably achievable. Comparison: Right upper quadrant ultrasound 05/20/2025 Findings: Infiltrative ill-defined pancreatic body mass is present measuringapproximately 3 cm. Numerous adjacent lymph nodes are present. Thickeningof the adrenal glands. Simple water attenuation left renal cyst measures2.3 cm. Multiple intrahepatic cysts again noted measuring up to 3.4 cm.Vicarious excretion of contrast into the gallbladder noted. The spleen isnot enlarged. Extensive atherosclerotic changes. Ectatic aorta. Noaneurysm or dissection. No pulmonary embolism. Prominent lymph nodes inthe mediastinum measure up to 1.1 cm in the precarinal space. Visualizedthyroid normal. Emphysema. No suspicious pulmonary nodule. Dependent areasof atelectasis in both lower lobes. No vertebral body compressionfracture. Impression: Ill-defined infiltrative pancreatic body/tail mass measuring approximately3 cm with adjacent retroperitoneal adenopathy. Dedicated CT or MRI of thepancreas recommended for further evaluation. Dependent bibasilar atelectasis. No suspicious pulmonary nodule. Mildly prominent precarinal lymph nodes in the mediastinum. Emphysema. Multiple intrahepatic cysts and left renal cyst. Please note that all CT scans at this facility use dose modulation,iterative reconstruction, and/or weight-based dosing when appropriate toreduce radiation dose to as low as reasonably achievable. Dictated by Cristóbal Larry MD @ 05/27/2025 3:41:59 PM (Electronically Signed) Eunice SANDHU CT Edited Result - Final * CA 19-9 (05/26/2025 11:26 AM CDT) CA 19-9 24 <34 U/mL [facility] Comment: This test was performed using the Siemens chemiluminescent method. Values obtained from different assay methods cannot be used interchangeably. CA 19-9 levels, regardless of value, should not be interpreted as absolute evidence of the presence or absence of disease. Blood BLOOD SPECIMEN / Unknown 05/26/2025 11:26 AM CDT 05/26/2025 11:28 AM CDT Eunice SANDHU SEND OUTS Final R esult [employer] [facility] [address] [place] [address], [facility] [address] [place] [address] * HEPATIC FUNCTION PANEL (05/26/2025 11:26 AM CDT) Pathologist [facility] PROTEIN, TOTAL 7.2 6.1 - 8.1 g/dL [facility] ALBUMIN 4.5 3.6 - 5.1 g/dL [facility] GLOBULIN 2.7 1.9 - 3.7 g/dL (calc) [facility] ALBUMIN/GLOBULIN RATIO 1.7 1.0 - 2.5 (calc) [facility] BILIRUBIN, TOTAL 0.8 0.2 - 1.2 mg/dL [facility] BILIRUBIN, DIRECT 0.1 < OR = 0.2 mg/dL [facility] BILIRUBIN, INDIRECT 0.7 0.2 - 1.2 mg/dL (calc) [facility] ALKALINE PHOSPHATASE 77 37 - 153 U/L [facility] AST 23 10 - 35 U/L [facility] ALT 21 6 - 29 U/L [facility] Blood BLOOD SPECIMEN / Unknown 05/26/2025 11:26 AM CDT 05/26/2025 11:28 AM CDT Eunice SANDHU CHEMISTRY Final R esult [employer] [facility] [address] [place] [address], [place] [phone] [facility] [address] [place] [address] * SCAN-CT INTERPRETATION (05/25/2025 12:00 AM CDT) Only the most recent of2 resultswithin the time period is included. Anatomical Region Laterality Modality Other us Scanner OTHER Final Result * SCAN-ELECTROCARDIOGRAM EKG (05/25/2025 12:00 AM CDT) us Scanner OTHER Final Result * US ABDOMEN LIMITED (05/20/2025 9:39 AM [...] 7:47:49 AM (Electronically Signed) us Eunice SANDHU US Final R esult * (ABNORMAL) CBC AND [...] us Eunice SANDHU HEMATOLOGY Final R esult Performing Organization Address City/[facility]/ZIP Co de Phone Number [employer] [facility] [address] [place] [address], [facility] [address] [place] [address] * (ABNORMAL) LIPID PANEL W REFLEX MEASURED LDL (01/05/2025 11:43 AM BOWLING BALL PATCHER) CHOLESTEROL, TOTAL 143 <200 mg/dL [facility] [...] equation in the estimation of LDL-C. Murphy SS et al. BAO. 2013;310(19): 2199-7314 (http://education.Aunt Kitchen/faq/GKE212) CHOL/HDLC RATIO 3.1 <5.0 (calc) [facility] NON HDL CHOLESTEROL 97 <130 mg/dL (calc) [facility] Comment: For patients with diabetes plus 1 major ASCVD risk factor, treating to a non-HDL-C goal of <100 mg/dL (LDL-C of <70 mg/dL) is considered a therapeutic option. Blood BLOOD SPECIMEN / Unknown 01/05/2025 11:43 AM BOWLING BALL PATCHER 01/05/2025 11:44 AM BOWLING BALL PATCHER Narrative [facility] - 01/06/2025 3:51 AM BOWLING BALL PATCHER FASTING:YES FASTING: YES Eunice SANDHU CHEMISTRY Final R esult [employer] [facility] [address] [place] [address], [facility] [address] [place] [address] * OCCULT BLOOD IFOBT STOOL (01/03/2023 10:26 AM BOWLING BALL PATCHER) STOOL BLOOD ,IFOBT Negative Negative 01/08/2023 10:58 AM BOWLING BALL PATCHER [facility] Stool STOOL SPECIMEN / Unknown Non-Blood / Unknown 01/03/2023 10:26 AM BOWLING BALL PATCHER 01/08/2023 10:26 AM BOWLING BALL PATCHER us Eunice SANDHU LABORATORY Final R esult [facility] [address] [place] [address], [place] [phone] from Last 3 Months or Most Recently Relevant to Health Maintenance Insurance [employer] BLUE MR PB ONLY [employer] BLUE HB ONLY MEDICARE PART B HB ONLY MEDICARE PART A HB ONLY Advance Directives * Full Code (Latest Code Status on File) Date Activated Date Inactivated Comments 06/17/2025 1:07 PM 06/18/2025 2:35 AM Question Answer Comments Code Status Discussion: Reviewed Preferences * Full Code Date Activated Date Inactivated Comments 06/02/2025 8:43 AM 06/02/2025 2:19 PM Question Answer Comments Code Status Discussion: Unable to Assess Preferences, Provider to review later Care Teams Weigh And Charge Worker Relationship Specialty Start Date End Date Eunice Rae PA [address] [place] [address] PCP - General Family Practice 01/25/15March, Jessa Ignacio, RN, BSN Nurse Navigator - Oncology Oncology 05/27/25 JesusJade, NATAN [address] [place] [address] Nurse Navigator - Oncology Registered Nurse 06/01/25 [place] [id number] [facility] [address] [place] [address] Oncology 06/10/25 Nicol Calix, DIRECTOR TRANSLATIONAL [address] [facility] [place] [address] Oncology 06/12/25 Lisa Yee MD [address] [facility] [place] [address] Oncology 06/12/25
--- NOTE | 2025-07-05 03:13 | ED.GENADULT ---
HPI - General Adult General Time Seen by Provider: 03:13 Date Seen: 07/05/25 Chief complaint: Nausea/Vomiting Stated complaint: Weakness, Nausea, Vomiting Time Seen by Provider: 07/05/25 03:10 Source: patient and family (spouse) Mode of arrival: ambulatory History of Present Illness HPI narrative: Dread is a 69 year old female with a recent diagnosis of pancreatic cancer approximately 1 month ago presents emergency department for evaluation of generalized weakness, nausea, vomiting, decreased oral intake. ?Patient reports that she had her 1st chemo approximately 10 days ago (05/3025). ?Patient states that she has been sick and not feeling well ever since her chemotherapy.? Patient reports a generalized weakness, decreased oral intake, ongoing nausea, vomiting, and diarrhea which he describes as loose watery non-bloody stools.? Patient reports some abdominal discomfort secondary to the nausea, vomiting, diarrhea.? Patient states that she has been getting IV fluids infusion every other day and her last infusion was on .? Patient denies any fever, chills, chest pain, cough, shortness of breath, dysuria, no other complaints. Past medical history, past surgical history, medications, allergies, family history, and social history were reviewed with the patient.? No additional pertinent items. A medically appropriate review of systems was performed with pertinent positives and negatives noted in HPI, all other systems negative. Physical Exam: General: Afebrile, appears weak, in distress HEENT: Normocephalic, atraumatic, conjunctiva normal.? Dry mucous membranes Neck: non-tender, supple Cardio: regular rate. regular rhythm Resp: Normal work of breathing, no respiratory distress, lungs clear bilaterally, no wheezing, rhonchi, rales Chest/Back: no visual signs of trauma, no midline tenderness, no CVA tenderness Abdomen: soft, non distension, no tenderness, no peritoneal signs Neuro: alert and fully oriented. CN II-XII grossly intact. Grossly normal strength and sensation in all extremities. MSK: no deformities. Normal range of motion Integumentary/Skin: no rash visualized, normal color Psych: normal affect, normal behavior Upon arrival patient is ill but nontoxic appearing, afebrile, appears weak and in distress.? Suspect patient's symptoms are most likely secondary to chemotherapy however will obtain comprehensive labs to rule out any acute metabolic/electrolyte abnormality, infectious etiology. Patient was treated with 1 L IV fluid bolus, IV Compazine, IV Benadryl upon arrival. Comprehensive labs remarkable for white blood cell count 11.53, hemoglobin 11.9, hyponatremic 124, hypochloremic, 91, hypokalemia 2.7. Normal creatinine, no transaminitis, normal lipase. I discussed results with patient and family. On re-evaluation patient is resting comfortably, no further episodes of nausea, vomiting, patient is able to tolerate ice chips and was able to get some sleep. Given patient's dehydration, metabolic abnormality recommend admission for electrolyte replacement and ongoing IV hydration. Patient and family understand agrees the plan. I discussed patient management with [facility] Hospitalist Dr. Godoy who agrees with admission. Related Data Home Medications ?Medication ?Instructions ?Recorded ?Confirmed albuterol sulfate 90 mcg/actuation inhalation 05/25/25 aerosol inhaler fluoxetine 20 mg capsule 20 mg PO QAM 05/25/25 05/25/25 hydrochlorothiazide 25 mg tablet 25 mg PO DAILY 05/25/25 05/25/25 losartan 100 mg tablet 100 mg PO DAILY 05/25/25 05/25/25 propranolol 10 mg tablet 10 mg PO DAILY 05/25/25 05/25/25 propranolol 20 mg tablet 20 mg PO DAILY 05/25/25 05/25/25 rosuvastatin 5 mg tablet 5 mg PO QPM 05/25/25 05/25/25 umeclidinium 62.5 mcg-vilanterol inhalation 05/25/25 25 mcg/actuation powdr for inhalation (Anoro Ellipta) Previous Rx's ?Medication ?Instructions ?Recorded cephalexin 500 mg capsule 500 mg PO BID #10 caps 05/27/25 fluconazole 150 mg tablet 150 mg PO DAILY PRN yeast #1 tab 05/27/25 Allergies Allergy/AdvReac Type Severity Reaction Status Date / Time codeine Allergy Mild Abdominal Verified 07/05/25 03:31 Pain PFSH [facility] Social History Smoking Status: Current every day smoker What tobacco products do you use: cigarettes Smoking packs per day: 0.5 Smoking cigarettes per day: 10.0 Do you use any of these nicotine containing products: None How often do you have a drink containing alcohol: never AUDIT-C Alcohol total score: 0 Non-prescribed substance use: denies use service: No Exam Const: Vital Signs, click to edit/add: Vital Signs - 24 hr 07/05/25 03:29 Temperature 97.0 F L Pulse Rate [Right Pulse Oximeter] 81 Respiratory Rate 16 Blood Pressure [Le ft Upper Arm] 102/66 Pulse Oximetry 98 Oxygen Delivery Me thod Room Air Course Vital Signs Vital signs: Initial Vital Signs Temperature 97.0 F L 07/05/25 03:29 Temperature Source Temporal Artery Scan 07/05/25 03:29 Pulse Rate 81 07/05/25 03:29 Pulse Rhythm Regular 07/05/25 03:29 Pulse Strength 3+ Normal 07/05/25 03:29 Respiratory Rate 16 07/05/25 03:29 Blood Pressure 102/66 07/05/25 03:29 Blood Pressure Mean 78 07/05/25 03:29 Blood Pressure Position Sitting 07/05/25 03:29 Pulse Oximetry 98 07/05/25 03:29 Oxygen Delivery Method Room Air 07/05/25 03:29 Vital Signs Temperature 97.0 F L 07/05/25 03:29 Pulse Rate 81 07/05/25 03:29 Respiratory Rate 16 07/05/25 03:29 Blood Pressure 102/66 07/05/25 03:29 Pulse Oximetry 98 07/05/25 03:29 Oxygen Delivery Method Room Air 07/05/25 03:29 Temperature 97.0 F L 07/05/25 03:29 Pulse Rate 81 07/05/25 03:29 Respiratory Rate 16 07/05/25 03:29 Blood Pressure 102/66 07/05/25 03:29 Pulse Oximetry 98 07/05/25 03:29 Oxygen Delivery Method Room Air 07/05/25 03:29 Medications Administered Medications: Discontinued Medications Generic Name Dose Route Start Last Admin Trade Name Freq PRN Reason Stop Dose Admin Diphenhydramine HCl 25 mg 07/05/25 03:23 07/05/25 03:28 Diphenhydramine 50 Mg/Ml Inj IVP 07/05/25 03:24 25 mg ONCE ONE Administration Sodium Chloride 1,000 mls @ 1,000 mls/hr 07/05/25 03:30 07/05/25 04:13 0.9 % Sodium Chloride 1000 Ml IV 07/05/25 04:29 Infused .Q1H MILAN Infusion Prochlorperazine 10 mg 07/05/25 03:23 07/05/25 03:28 Prochlorperazine 5 Mg/Ml Vial IV 07/05/25 03:24 10 mg ONCE ONE Administration Medical Decision Making Lab Data Labs: Lab Results 07/05/25 Range/Units 02:49 WBC 11.53 H (4.50-11.00) K/uL RBC 4.03 (4.00-5.20) m/uL Hgb 11.9 L (12.0-16.0) gm/dL Hct 34.8 (33.0-51.0) % MCV 86 (80-100) fL MCH 30 (26-34) pg MCHC 34 (32-36) gm/dL Plt Count 213 (140-440) K/uL Neut % (Auto) 69.2 (42.0-72.0) % Lymph % (Auto) 10.3 L (20-44) % [place] % (Auto) 14.3 H (0.0-11.0) % Eos % (Auto) 0.7 (0.0-7.0) % Baso % (Auto) 0.2 (0.0-3.0) % Neut # (Auto) 8.00 H (1.7-7.0) K/uL Lymph # (Auto) 1.20 (0.90-2.90) K/uL [place] # (Auto) 1.60 H (0.00-0.90) K/UL Eos # (Auto) 0.10 (0.00-0.50) K/uL Baso # (Auto) 0.00 (0.00-0.30) K/uL Sodium 124 L* (135-149) mmol/L Potassium 2.7 L* (3.6-5.1) mmol/L Chloride 91 L (96-114) mmol/L Carbon Dioxide 25 (20-32) mmol/L Anion Gap 8 (7-15) mEq/L BUN 13 (7-30) mg/dL Creatinine 0.7 (0.5-1.5) mg/dL Estimated Creat Clear 48.03 Estimated GFR 92 ml/min Glucose 102 (60-115) mg/dL Calcium 8.8 (8.4-10.6) mg/dL Magnesium 1.6 (1.5-2.6) mg/dL Total Bilirubin 0.5 (0.1-1.5) mg/dL AST 23 (12-35) U/L ALT 21 (4-35) U/L Alkaline Phosphatase 91 (40-150) U/L Total Protein 6.1 (6.0-8.3) g/dL Albumin 3.4 (3.3-5.0) g/dL Lipase 32 (23-300) U/L Critical Care Time Critical Care Time Critical Care Time: Yes Attestation: The patient required my highest level preparedness to intervene emergently and I personally spent this critical care time directly and personally managing the patient. This critical care time included: Obtaining a history; Examining the patient; Pulse oximetry; Ordering and reviewing of studies; Arranging urgent treatment with development of a management plan; Evaluation of patients response to treatment; Frequent reassessment discussions with other providers. This critical care time was performed to assess and manage the high probability of imminent life-threatening deterioration that could result in multiorgan failure. It was exclusive of separate billable procedures and treating other patients and teaching time. Total Critical Care Time in Minutes: 60 Discharge Plan Discharge Clinical Impression: Weakness, Nausea & vomiting, Acute hypokalemia, Hyponatremia Patient Disposition: Admitted As Inpatient Condition: Improved
[2025-07-05] MEDS: PROCHLORPERAZINE 5 MG/ML VIAL 10 MG IV ×2 (03:28→17:18)
[2025-07-05 03:50] LABS: Anion Gap 8 mEq/L (7-15); Blood Urea Nitrogen* 13 mg/dL (7-30); Calcium* 8.8 mg/dL (8.4-10.6); Carbon Dioxide* 25 mmol/L (20-32); Chloride* 91 mmol/L (96-114); Creatinine* 0.7 mg/dL (0.5-1.5); Est. Creatinine Clearance* 48.03; Estimated Glomerular Filt Rate 92 ml/min; Potassium* 2.7 mmol/L (3.6-5.1); Sodium* 124 mmol/L (135-149)
[2025-07-05 03:51] LABS: Alanine Aminotransferase* 21 U/L (4-35); Albumin* 3.4 g/dL (3.3-5.0); Alkaline Phosphatase* 91 U/L (40-150); Aspartate Amino Transferase* 23 U/L (12-35); Bilirubin Total* 0.5 mg/dL (0.1-1.5); Glucose* 102 mg/dL (60-115); Red Blood Count 4.03 m/uL (4.00-5.20); Total Protein* 6.1 g/dL (6.0-8.3); White Blood Count* 11.53 K/uL (4.50-11.00)
[2025-07-05 03:52] LABS: Hematocrit 34.8 % (33.0-51.0); Hemoglobin* 11.9 gm/dL (12.0-16.0); Lymphocytes Absolute Auto 1.20 K/uL (0.90-2.90); Mean Corpuscular HGB Conc 34 gm/dL (32-36); Mean Corpuscular Hemoglobin 30 pg (26-34); Mean Corpuscular Volume 86 fL (80-100); Slide Review Reflex No
--- NOTE | 2025-07-05 04:24 | W.PM.TELEH&P ---
Telehealth- H&P: HPI History of Present Illness Date Seen: 07/05/25 Chief complaint: Weakness, Nausea, Vomiting Narrative: Dread Schmid is seen as an Interactive Telehealth visit. Dread Schmid is a 69 year old female h/o pancreatic mass diagnosed in late April on chemo, emphysema, hypertension, tremors, dyslipidemia presents with weakness secondary to chemotherapy. Patient started chemotherapy 10 days ago or 07/25. Per patient, on her first day of chemotherapy, she was given a chemo pouch or 2 day infusion. She returned to the infusion center the following days with symptoms of nausea, vomiting, and diarrhea. she was unable to tolerate the chemo. Her chemo was stopped. Patient was only infused for one day. She was receiving every other day IV infusions. Unforutnately, patient's symptoms did not improve. She comes to the ED with weakness, nausea, vomiting and diarrhea. No melena, hematochezia, or hematemesis. no fever, chills. She has not been able to tolerate po. Fortunately she has lost one pound. She received 20meQ of potassium adn antiemetics in the ED. slight headache weakness no dizziness no chest pain, sno shortness of breath + abdominal pain started with chemotherapy no dysuria no viral symptoms like runny nose, sore throat, or coughing medicine in ED helped tobacco: down to 5 cigarettes per day no ETOH h/o tremor (on propranolol, recently decreased her dose due to bradycardia), COPD (former smoker, only on albuterol inhaler p.r.n.), hypertension hydrochlorothiazide and losartan, dyslipidemia rosuvastatin, allergies, on Claritin [facility] Medical History (Updated 07/05/25 @ 04:41 by Christiana Godoy MD) Hypertension ?I10 - Essential (primary) hypertension (ICD-10) Emphysema lung ?J43.9 - Emphysema, unspecified (ICD-10) Hyperlipidemia ?E78.5 - Hyperlipidemia, unspecified (ICD-10) Social History Smoking Status: Current every day smoker What tobacco products do you use: cigarettes Smoking packs per day: 0.5 Smoking cigarettes per day: 10.0 Do you use any of these nicotine containing products: None How often do you have a drink containing alcohol: never AUDIT-C Alcohol total score: 0 Non-prescribed substance use: denies use service: No Meds Home Medications and Allergies Home Medications ?Medication ?Instructions ?Recorded ?Confirmed ?Type albuterol sulfate 90 mcg/actuation inhalation 05/25/25 History aerosol inhaler fluoxetine 20 mg capsule 20 mg PO QAM 05/25/25 05/25/25 History hydrochlorothiazide 25 mg tablet 25 mg PO DAILY 05/25/25 05/25/25 History losartan 100 mg tablet 100 mg PO DAILY 05/25/25 05/25/25 History propranolol 10 mg tablet 10 mg PO DAILY 05/25/25 05/25/25 History propranolol 20 mg tablet 20 mg PO DAILY 05/25/25 05/25/25 History rosuvastatin 5 mg tablet 5 mg PO QPM 05/25/25 05/25/25 History umeclidinium 62.5 mcg-vilanterol inhalation 05/25/25 History 25 mcg/actuation powdr for inhalation (Anoro Ellipta) cephalexin 500 mg capsule 500 mg PO BID #10 caps 05/27/25 Rx fluconazole 150 mg tablet 150 mg PO DAILY PRN yeast #1 tab 05/27/25 Rx Allergies Allergy/AdvReac Type Severity Reaction Status Date / Time codeine Allergy Mild Abdominal Verified 07/05/25 03:31 Pain Exam Narrative Exam Narrative: Physical Exam GENERAL: ?vital signs reviewed, well developed and nourished, in no distress HEENT: pupils are equal round and reactive to light, extraocular movements are grossly within normal limits and oral mucosa is moist. NECK: Supple without lymphadenopathy or thyromegaly according to nursing staff examination observation HEART: Regular rate and rhythm without any rubs, murmurs, or gallops. LUNGS: Clear to auscultation bilaterally with good air movement throughout ABDOMEN: Observation from nurse assisted exam, abdomen appears soft, nontender, and nondistended with Positive bowel sounds noted. EXTREMITIES: Strength and sensation is observed to be grossly within normal limits in the upper and lower extremities.? No focal strength deficit is observed. SKIN:? Observed warm and dry with color normal Const Vital Signs, click to edit/add: Vital Signs - 24 hr 07/05/25 03:29 Temperature 97.0 F L Pulse Rate [Right Pulse Oximeter] 81 Respiratory Rate 16 Blood Pressure [Left Upper Arm] 102/66 Pulse Oximetry 98 Oxygen Delivery Method Room Air Hospitalist - H&P: Result Labs Labs: Short CBC 07/05/25 Range/Units 02:49 WBC 11.53 H (4.50-11.00) K/uL Hgb 11.9 L (12.0-16.0) gm/dL Hct 34.8 (33.0-51.0) % Plt Count 213 (140-440) K/uL BMP 07/05/25 02:49 Sodium 124 L* Potassium 2.7 L* Chloride 91 L Carbon Dioxide 25 BUN 13 Creatinine 0.7 Glucose 102 Calcium 8.8 Liver Function 07/05/25 Range/Units 02:49 Total Bilirubin 0.5 (0.1-1.5) mg/dL AST 23 (12-35) U/L ALT 21 (4-35) U/L Alkaline Phosphatase 91 (40-150) U/L Albumin 3.4 (3.3-5.0) g/dL Assessment and Plan Assessment and plan (1) Mass of pancreas: Status: Inactive (2) Hypertension: Status: Inactive (3) Hyponatremia: Status: Acute (4) Acute hypokalemia: Status: Acute (5) Nausea & vomiting: Status: Acute (6) Weakness: Status: Acute Plan Nausea/Vomiting: likely due to chemotherapy and resulting in both dehydration and electrolyte imbalance. --administer scheduled and prn antiemetics --administer IVF --administer clear liquids hyponatremia: due to combination poor po, nausea, vomiting --administer IVF --recheck sodium q 5; will need sodium labs ordered --stop hydrochlorothiazide hypokalemia: contributing to weakness patient will receive IV potassium in in ED --continue IV potassium replacement on the floor --stop HCTZ Leukocytosis: likely stress response --reassess in AM Diarrhea: likely chemo related --administer loperamide h/o hypertension: currently controlled --continue IVF --hold losartan, hydrochlorothiazide h/o emphysema: no sign of exacerbation --continue inhalers Code states: full code per discussion with patient DVT prophy: Lovenox Total Time Spent Total Time Spent: camera start time 459a camera end dtime 515a Telehealth: Statement Statement Telehealth Visit: Today's History and Physical is provided via interactive telehealth by Christiana Godoy MD.? Patient is located at [facility].? Provider is located at [facility] Nursing staff assisted with the patient's exam. The visit being done today meets criteria for a telehealth visit and the patient or patient?s parent/guardian is aware the visit is a telehealth visit.
[2025-07-05] MEDS: POTASSIUM CHLORIDE 10 MEQ/100 ML PIGGYBACK 100 MEQ IVPB ×2 (04:51→06:14)
[2025-07-05 05:15] LABS: Appearance Urine Clear (Clear)
[2025-07-05] MEDS: SODIUM CHLORIDE 0.9 % (FLUSH) 10 ML SYRINGE 5 ML IVF ×3 (05:57→17:18)
[2025-07-05] MEDS: ONDANSETRON 2 MG/ML inj 4 MG IVP (05:57)
[2025-07-05] MEDS: 5 % DEX/0.9 SOD CHL+KCL 20 mEq 1,000 ML 100 ML IV (05:57)
--- NOTE | 2025-07-05 07:16 | PC.NURSE ---
Pt admitted to unit around 0500. Pt alert and oriented x3. Afebrile. Pt reports 3/10 abdominal pain and nausea, managed with PRN medications.
[2025-07-05] MEDS: POTASSIUM CHLORIDE 10 MEQ CAPSULE ER 20 MEQ PO (09:01)
--- NOTE | 2025-07-05 11:46 | P.IMPN_ITS ---
Assessment and Plan Assessment and plan (1) Adenocarcinoma of pancreas, stage 4: Problem comment: Found on CT scan 05/25/2025. EUS guided fine-needle aspiration showed adenocarcinoma on June 02 2025. Treatment with FOLFIRINOX initiated 06/24/2025. She has been ill with predominantly gastrointestinal symptoms since that time. Receiving IV fluids approximately every other day since that time. Status: Acute (2) Diarrhea: Problem comment: Associated with abdominal cramping. Much worse with eating so she has stopped eating Status: Acute (3) Hyponatremia: Problem comment: Due to poor oral intake, vomiting and diarrhea and hydrochlorothiazide Status: Acute (4) Acute hypokalemia: Problem comment: Due to poor oral intake, vomiting and diarrhea and hydrochlorothiazide Status: Acute (5) Nausea & vomiting: Problem comment: Due to FOLFIRINOX. Status: Acute (6) Weakness: Problem comment: Due to prolonged vomiting and diarrhea and poor oral intake Status: Acute (7) Dehydration: Problem comment: Receiving IV fluids every other day for GI toxicity from FOLFIRINOX Status: Acute Plan Continue in hospital with IV fluids, correct electrolyte abnormalities and discharge pending patient's ability to maintain her own hydration and nutrition. Total Time Spent Total Time Spent: Total time spent today is 70 minutes in review of outside records, coordination of care, discussion with patient ongoing evaluation management of gastrointestinal illness from chemotherapy Subjective Date Seen: 07/05/25 Exam Const: Vital Signs, click to edit/add: Vital Signs - 24 hr 07/05/25 03:29 07/05/25 04:57 07/05/25 08:12 Temperature 97.0 F L 98.1 F 98.2 F Pulse Rate Pulse Rate [Pulse Oximeter] 69 77 Pulse Rate [Right Pulse Oximeter] 81 Respiratory Rate 16 16 20 Blood Pressure [Le ft Upper Arm] 102/66 Blood Pressure [Ri ght Arm] 143/89 H 129/75 Pulse Oximetry 98 96 94 Oxygen Delivery Me thod Room Air Room Air Room Air 07/05/25 08:29 Temperature Pulse Rate 65 Pulse Rate [Pulse Oximeter] Pulse Rate [Right Pulse Oximeter] Respiratory Rate Blood Pressure [Le ft Upper Arm] Blood Pressure [Ri ght Arm] Pulse Oximetry Oxygen Delivery Me thod Labs Labs: Laboratory Results - last 24 hr 07/05/25 07/05/25 02:49 04:37 WBC 11.53 H RBC 4.03 Hgb 11.9 L Hct 34.8 MCV 86 MCH 30 MCHC 34 Plt Count 213 Neut % (Auto) 69.2 Lymph % (Auto) 10.3 L [place] % (Auto) 14.3 H Eos % (Auto) 0.7 Baso % (Auto) 0.2 Neut # (Auto) 8.00 H Lymph # (Auto) 1.20 [place] # (Auto) 1.60 H Eos # (Auto) 0.10 Baso # (Auto) 0.00 Sodium 124 L* Potassium 2.7 L* Chloride 91 L Carbon Dioxide 25 Anion Gap 8 BUN 13 Creatinine 0.7 Estimated Creat Clear 48.03 Estimated GFR 92 Glucose 102 Calcium 8.8 Magnesium 1.6 Total Bilirubin 0.5 AST 23 ALT 21 Alkaline Phosphatase 91 Total Protein 6.1 Albumin 3.4 Lipase 32 Urine Color Yellow Urine Appearance Clear Urine pH 6.5 Ur Specific [place] <= 1.005 Urine Protein Negative Urine Glucose (UA) Negative Urine Ketones Trace A Urine Blood Negative Urine Nitrite Negative Urine Bilirubin Negative Urine Urobilinogen 0.2 Ur Leukocyte Esterase Negative Urine RBC 0-2 Urine WBC 0-2 Ur Squamous Epith Cells None Urine Bacteria None
[2025-07-05] MEDS: LOPERAMIDE HCL 2 MG CAPSULE PO ×2 (11:59→20:26)
[2025-07-05] MEDS: FLUOXETINE HCL 20 MG CAPSULE PO (12:00)
[2025-07-05] MEDS: PROPRANOLOL 20 MG TABLET 10 MG PO (12:00)
[2025-07-05 13:18] LABS: Chloride* 97 mmol/L (96-114); Sodium* 129 mmol/L (135-149)
[2025-07-05 13:19] LABS: Potassium* 3.3 mmol/L (3.6-5.1)
[2025-07-05 13:21] LABS: Anion Gap 3 mEq/L (7-15); Blood Urea Nitrogen* 8 mg/dL (7-30); Carbon Dioxide* 29 mmol/L (20-32); Creatinine* 0.6 mg/dL (0.5-1.5); Est. Creatinine Clearance* 48.30; Estimated Glomerular Filt Rate 96 ml/min
[2025-07-05 13:22] LABS: Calcium* 8.3 mg/dL (8.4-10.6); Glucose* 122 mg/dL (60-115)
[2025-07-05] MEDS: MAGNESIUM OXIDE 400 MG TABLET PO (13:59)
[2025-07-05] MEDS: POTASSIUM CHLORIDE 10 MEQ CAPSULE ER 40 MEQ PO (13:59)
[2025-07-05 15:22] LABS: C.Difficile Negative (Negative); CDIFFEPI 027 PRESUMPTIVE NEGATIVE (Negative)
[2025-07-05] MEDS: ACETAMINOPHEN 325 MG TABLET 650 MG PO (15:45)
[2025-07-05] MEDS: HEPARIN 500 UNIT/5 ML SYRINGE IVF ×2 (15:58→17:18)
[2025-07-05] MEDS: DIPHENOXYLATE-ATROP 2.5-0.025 TABLET 1 TAB PO (16:00)
--- NOTE | 2025-07-05 17:39 | PC.NURSE ---
Shift Summary: Patient pleasant and cooperative. Up independently in room. Loose stools throughout shift, per patient this started when she started chemo, managed with PRN medication see JAN. Nausea managed with PRN medication. Increased agitation/anxiousness noted this afternoon, per family she appears restless and uncomfortable, patient requested PRN ativan for anxiety. Pain managed with PRN medication and aqua-k pad. Increased abdominal pain this afternoon, given PRN acetaminophen with some relief. Family at bedside and supportive.
[2025-07-05] MEDS: ENOXAPARIN 40 MG/0.4 ML INJ SUBCUT (20:26)
[2025-07-05] MEDS: ONDANSETRON ODT 4 MG TAB PO (22:18)
[2025-07-06 03:53] VITALS: BP 116/67; PULSE 72; RESP 18; TEMP 36.8; O2SAT 91
[2025-07-06] MEDS: DIPHENOXYLATE-ATROP 2.5-0.025 TABLET 1 TAB PO (04:16)
[2025-07-06 04:45] VITALS: PULSE 65
[2025-07-06] MEDS: ONDANSETRON 2 MG/ML inj 4 MG IVP (06:30)
[2025-07-06] MEDS: HEPARIN 500 UNIT/5 ML SYRINGE IVF ×2 (06:30→12:27)
[2025-07-06 07:39] VITALS: BP 121/66; PULSE 78; RESP 20; TEMP 36.7; O2SAT 94
[2025-07-06] MEDS: LOPERAMIDE HCL 2 MG CAPSULE PO (07:44)
[2025-07-06 08:02] LABS: Hematocrit 34.9 % (33.0-51.0); Hemoglobin* 11.6 gm/dL (12.0-16.0); Immature Granulocytes Pct Auto 5.5 %; Lymphocytes Absolute Auto 1.70 K/uL (0.90-2.90); Mean Corpuscular HGB Conc 33 gm/dL (32-36); Mean Corpuscular Hemoglobin 29 pg (26-34); Mean Corpuscular Volume 88 fL (80-100); RDW Coefficient of Variation % 13.2 % (11.5-15.5); Red Blood Count 3.96 m/uL (4.00-5.20); White Blood Count* 11.56 K/uL (4.50-11.00)
[2025-07-06 08:07] LABS: Immature Granulocytes Abs Auto 0.60 K/uL (0.00-0.30)
[2025-07-06 08:08] LABS: Slide Review Reflex Yes
[2025-07-06 08:17] LABS: Chloride* 99 mmol/L (96-114); Potassium* 3.6 mmol/L (3.6-5.1); Sodium* 130 mmol/L (135-149)
[2025-07-06 08:20] LABS: Anion Gap 5 mEq/L (7-15); Blood Urea Nitrogen* 10 mg/dL (7-30); Calcium* 8.8 mg/dL (8.4-10.6); Carbon Dioxide* 26 mmol/L (20-32); Creatinine* 0.7 mg/dL (0.5-1.5); Est. Creatinine Clearance* 48.30; Estimated Glomerular Filt Rate 92 ml/min; Glucose* 84 mg/dL (60-115)
[2025-07-06 08:40] LABS: Slide Review Acceptable Review (Acceptable)
[2025-07-06] MEDS: PROPRANOLOL 20 MG TABLET 10 MG PO (08:51)
[2025-07-06] MEDS: MAGNESIUM OXIDE 400 MG TABLET PO (08:52)
[2025-07-06] MEDS: FLUOXETINE HCL 20 MG CAPSULE PO (08:52)
[2025-07-06 09:12] VITALS: BMI 21.7
[2025-07-06 10:45] VITALS: PULSE 57
[2025-07-06] MEDS: SODIUM CHLORIDE 0.9 % (FLUSH) 10 ML SYRINGE 5 ML IVF (12:26)
--- NOTE | 2025-07-06 13:25 | P.DS_ITS ---
DS: Providers Provider Date Seen: 07/06/25 Date of admission: 07/05/25 05:17 Primary care physician: Eunice Rae PA-C Admitting Clinician: Christiana Godoy MD Attending Physician on discharge: Bi Stevens MD Date of Discharge: 07/06/25 DS: Diagnosis Discharge Diagnosis (1) Adenocarcinoma of pancreas, stage 4: Status: Acute Problem details: Found on CT scan 05/25/2025. EUS guided fine-needle aspiration showed adenocarcinoma on June 02 2025. Treatment with FOLFIRINOX initiated 06/24/2025. She has been ill with predominantly gastrointestinal symptoms since that time. Receiving IV fluids approximately every other day since that time. (2) Diarrhea: Status: Acute Problem details: Associated with abdominal cramping. Much worse with eating so she has stopped eating. Improved (3) Hyponatremia: Status: Acute Problem details: Due to poor oral intake, vomiting and diarrhea and hydrochlorothiazide. Improved to 130 on discharge (4) Acute hypokalemia: Status: Acute Problem details: Due to poor oral intake, vomiting and diarrhea and hydrochlorothiazide. Improved (5) Nausea & vomiting: Status: Acute Problem details: Due to FOLFIRINOX. Improved (6) Weakness: Status: Acute Problem details: Due to prolonged vomiting and diarrhea and poor oral intake. Improved (7) Dehydration: Status: Acute Problem details: Receiving IV fluids every other day for GI toxicity from FOLFIRINOX. Improved (8) Hypertension: Status: Acute Problem details: On hydrochlorothiazide and losartan. Blood pressures have been low. Recommend stopping hydrochlorothiazide permanently and reducing losartan dose. DS: Summary Hospital Course Hospital Course: 69-year-old female with stage IV adenocarcinoma of the pancreas admitted to the hospital with prominent gastrointestinal symptoms following FOLFIRI in ox treatment for her cancer. Ten days prior to admission she started treatment with FOLFIRINOX. She lost her appetite, became nauseated with vomiting. She was seen in the outpatient clinic for IV fluid infusions every other day. She then developed diarrhea which was worsened by eating so she stopped eating as well. This was all thought to be due to FOLFIRINOX. She is admitted to the hospital for management of dehydration, electrolyte abnormalities and intractable vomiting and diarrhea. She received IV and oral electrolyte replacement and IV fluids. She received symptomatic measures for vomiting and diarrhea. Over the 2 days she was in the hospital her symptoms largely resolved. Today she was able to eat and has not had diarrhea for several hours. Her electrolytes have largely return to normal During her hospital stay her blood pressure medicines were held for relatively low blood pressure. At the time of discharge her hydrochlorothiazide will continue to be stopped and her losartan resumed at a lower dose of 50 mg daily. Time Spent with Patient Time attestation: Total time spent providing and/or coordinating discharge services: 35 minutes Time spent: Greater than 30 minutes Exam Narrative: Exam Narrative: She is alert and appears in no distress. Mood and affect are bright. Breathing is unlabored. She is observed to eaten moderate amount of breakfast. Const: Vital Signs, click to edit/add: Vital Signs - 24 hr 07/05/25 15:00 07/05/25 15:00 07/05/25 19:48 Temperature 97.7 F 98.3 F Pulse Rate 62 Pulse Rate [Pulse Oximeter] 62 73 Respiratory Rate 16 18 Blood Pressure [Le ft Arm] Blood Pressure [Ri ght Arm] 122/63 121/69 Pulse Oximetry 97 94 Oxygen Delivery Me thod Room Air Room Air 07/05/25 22:20 07/06/25 03:53 07/06/25 04:45 Temperature 98.2 F Pulse Rate 65 Pulse Rate [Pulse Oximeter] 75 72 Respiratory Rate 16 18 Blood Pressure [Le ft Arm] Blood Pressure [Ri ght Arm] 130/74 116/67 Pulse Oximetry 93 91 Oxygen Delivery Me thod Room Air Room Air 07/06/25 07:39 07/06/25 10:45 Temperature 98.1 F Pulse Rate 57 L Pulse Rate [Pulse Oximeter] 78 Respiratory Rate 20 Blood Pressure [Le ft Arm] 121/66 Blood Pressure [Ri ght Arm] Pulse Oximetry 94 Oxygen Delivery Me thod Room Air Documenting provider has reviewed patient's vital signs: yes DS: Data Data Completed and Pending Labs on day of discharge: Labs from last 24 hours 07/06/25 07/06/25 07/05/25 08:00 07:35 14:27 WBC 11.56 H RBC 3.96 L Hgb 11.6 L Hct 34.9 MCV 88 MCH 29 MCHC 33 RDW Coeff of Terrence 13.2 Plt Count 223 Neut % (Auto) 66.8 Lymph % (Auto) 14.7 L [place] % (Auto) 11.7 H Eos % (Auto) 1.0 Baso % (Auto) 0.3 Neut # (Auto) 7.70 H Lymph # (Auto) 1.70 [place] # (Auto) 1.40 H Eos # (Auto) 0.10 Baso # (Auto) 0.00 Abs Immat Gran (auto) 0.60 H Imm/Tot Granulo (auto) 5.5 Diff Slide Review Acceptable Review Sodium 130 L Potassium 3.6 Chloride 99 Carbon Dioxide 26 Anion Gap 5 L BUN 10 Creatinine 0.7 Estimated Creat Clear 48.30 Estimated GFR 92 Glucose 84 Calcium 8.8 Magnesium 1.6 Stl C. diff Tox B Gene Negative Stl C. diff 027-NAP1-BI PRESUMPTIVE NEGATIVE 07/05/25 12:58 WBC RBC Hgb Hct MCV MCH MCHC RDW Coeff of Terrence Plt Count Neut % (Auto) Lymph % (Auto) [place] % (Auto) Eos % (Auto) Baso % (Auto) Neut # (Auto) Lymph # (Auto) [place] # (Auto) Eos # (Auto) Baso # (Auto) Abs Immat Gran (auto) Imm/Tot Granulo (auto) Diff Slide Review Sodium 129 L Potassium 3.3 L Chloride 97 Carbon Dioxide 29 Anion Gap 3 L BUN 8 Creatinine 0.6 Estimated Creat Clear 48.30 Estimated GFR 96 Glucose 122 H Calcium 8.3 L Magnesium 1.6 Stl C. diff Tox B Gene Stl C. diff 027-NAP1-[id number] Imaging CT scan - abdomen: Radiologist's impression: Indication: Abdominal pain, weight loss, bloating, anorexia Technique: CT through the abdomen and pelvis following 69 mL Isovue 370 IV contrast Comparison: None Findings: Lower chest: Severe emphysema. Trace left effusion and atelectasis. Hepatobiliary: Scattered indeterminate low-dense hepatic lesions. Spleen: Unremarkable. Pancreas: Focal irregularity of the mid to distal pancreas with what appears to be a cystic and solid mass measuring 2.8 x 2.0 centimeters with adjacent stranding. Adrenal glands: Mild nodular thickening of the left adrenal gland. Kidneys: No significant parenchymal abnormality appreciated. No visualized calculi. No hydronephrosis. Bowel: Diverticulosis. No obstruction. No focal perienteric or pericolonic stranding is appreciated. The appendix is visualized and appears unremarkable. Vascular: Calcified atherosclerosis. Lymph nodes: No gross lymphadenopathy. Peritoneum: No free air. No free fluid. : No acute abnormality appreciated. Soft tissues: No acute abnormality appreciated. Bones: No acute fracture. No lytic or blastic lesion. Mild spondylosis. Impression: 1. There is a focal irregularity along the mid to distal pancreas which appears to be a cystic and solid mass measuring up to 2.8 centimeters with adjacent stranding. No prior examination is available for comparison. Primary differential consideration is malignancy. Prior necrotizing pancreatitis with a pancreatic pseudocyst could give a similar appearance. 2. Hypodense but indeterminate density hepatic lesions are noted. Suspected biliary cysts, but if pancreatic neoplasm is present, metastasis is not excluded. 3. Severe emphysema with a trace left effusion. Discharge Plan Discharge Disposition: Home, Self-Care Date of Admission: 07/05/25 05:17 Attending Provider on Discharge: Willy Stevens Primary Care Provider: Eunice Rae Condition: Improved Anticipated Discharge Date/Time: 07/06/25 10:22 Discharge Medications: New nicotine 14 mg/24 hr Patch 24 Hour 1 patch transdermal Q24H Qty: 28 0RF Continued propranolol 10 mg tablet 10 mg PO DAILY albuterol sulfate 90 mcg/actuation HFA aerosol inhaler 2 puff inhalation Q4H PRN fluoxetine 20 mg capsule 20 mg PO QAM umeclidinium-vilanterol [Anoro Ellipta] 62.5-25 mcg/actuation blister with device 1 inh inhalation DAILY sennosides-docusate sodium [Senexon-S] 8.6-50 mg tablet 1 tab PO BID PRN tramadol 50 mg tablet 50 mg PO Q6H PRN (Reason: pain) prochlorperazine maleate 5 mg tablet 5 mg PO Q6H PRN (Reason: nausea/vomiting) ondansetron HCl 8 mg tablet 8 mg PO Q8H PRN (Reason: nausea/vomiting) lorazepam 0.5 mg tablet 0.5 mg PO Q6H PRN (Reason: anxiety) lidocaine-prilocaine 2.5-2.5 % cream 1 applic topical DAILY PRN diphenoxylate-atropine 2.5-0.025 mg tablet 1 tab PO QID PRN (Reason: diarrhea) dexamethasone 4 mg tablet 8 mg PO DAILY PRN Rx Instructions: days 2,3 of chemo cycle Changed losartan 50 mg tablet 50 mg PO DAILY Qty: 30 0RF loperamide 2 mg capsule 4 mg PO AC Qty: 30 0RF Discontinued hydrochlorothiazide 25 mg tablet 25 mg PO DAILY rosuvastatin 5 mg tablet 5 mg PO HS Discharge Orders: Discharge Order (Routine); Ordered 07/06/25 Ordered By: Willy Stevens Patient Education: Hyponatremia (GEN), Hypokalemia (DC) Additional Instructions: I made changes to your medications: Stop taking hydrochlorothiazide and rosuvastatin. Reduce losartan to 50 mg daily. Take Imodium before each meal and as needed. Activity Level: No Restrictions Discharge Diet: Regular Follow Up Appointments: Eunice Rae PA-C [Primary Care Provider, Family Practice] - 07/17/25 2:00 pm Referral Note: Follow up at [facility] 07/17 at 2PM Forms: [employer] Info Instructions Discharge Comments: Follow-up at the [facility] in [place] in 2 days as previously scheduled
--- NOTE | 2025-07-06 14:49 | PC.NURSE ---
discharged- pt pleasant, cooperative, discharged to home with spouse. vss, port de-accessed with needle intact, denies pain. discharge education provided including s/s to report, medications, and follow up plan. no questions asked
== END 2025-07-06 12:40 | disposition home or self-care (01) | DRG 641 ==
LOC: ED 04:51 → MEDSURG 04:53
PROVIDERS: Family Medicine; Admitting Provider Internal Medicine; Emergency Provider Emergency Medicine; PCP Physician Assistant Medical; Visit Provider Internal Medicine
DX: E86.0 Dehydration (principal); C25.9 Malignant neoplasm of pancreas, unspecified; K52.1 Toxic gastroenteritis and colitis; E87.1 Hypo-osmolality and hyponatremia; T45.1X5A Adverse effect of antineoplastic and immunosuppressive drugs, initial encounter; E87.6 Hypokalemia; R11.2 Nausea with vomiting, unspecified; R53.1 Weakness; D72.829 Elevated white blood cell count, unspecified; I10 Essential (primary) hypertension; J43.9 Emphysema, unspecified; F17.210 Nicotine dependence, cigarettes, uncomplicated
CPT/HCPCS: 36415; 80048; 80053; 81001; 83690; 83735; 85025; 87493; 93005; 99285; 99291; A9270; J0780; J1200; J1642; J1650; J2405; J3480; J7030; S4990